=== PATIENT | male | born 1955 | race Caucasian/White ===

== ENCOUNTER 2017-02-16 10:46 | Inpatient (IN) | payer OTHER ==
[2017-02-16 10:57] VITALS: BMI 29.5
[2017-02-16] MEDS ORDERED: Sodium Chloride 0.9% 1,000 ML IV SCH (11:30)
--- NOTE | 2017-02-16 11:52 | ED PDOC ---
HPI: General Adult Time Seen by Provider: 02/16/17 11:07 Chief Complaint (Nursing): Headache Chief Complaint (Provider): generalized weakness History Per: Patient History/Exam Limitations: no limitations Onset/Duration Of Symptoms: Days (10) Have you had recent travel within the past 21 days to any of the following countries: [place], [place], [place] or [place]?: No Other Location:: [place] Current Symptoms Are (Timing): Still Present Severity: Mild Recently: Treated By A Physician (treated in [place]) Additional History Per: Patient Additional Complaint(s): 62 y/o male c/o generalized weakness for 10 days. Patient was evaluated in [place] recently and was given Bactrim. Patient recently arrived in the [place] 3 hours [employer] from [place]. Patient reports decreased appetite and subjective fever at nights. Denies cough, nose congestion, sore throat. No nausea, vomiting, diarrhea, abdominal pain. No chest pain, Shortness of breath, dysuria. Past Medical History Reviewed: Historical Data, Nursing Documentation, Vital Signs Vital Signs: Last Vital Signs Temp 98.0 F 02/16/17 11:06 Pulse 82 02/16/17 11:06 Resp 18 02/16/17 11:06 BP 140/83 02/16/17 11:06 Pulse Ox 98 02/16/17 14:24 - Medical History PMH: HTN - Family History Family History: States: Unknown Family Hx - Social History Current smoker - smoking cessation education provided: No Alcohol: None Drugs: Denies - Allergies Allergies/Adverse Reactions: Allergies Allergy/AdvReac Type Severity Reaction Status Date / Time No Known Allergies Allergy Verified 02/16/17 11:05 Review of Systems ROS Statement: Except As Marked, All Systems Reviewed And Found Negative Constitutional: Positive for: Fever (Subjective, at night), Weakness ENT: Negative for: Nose Congestion, Throat Pain Cardiovascular: Negative for: Chest Pain Respiratory: Negative for: Cough, Shortness of Breath Gastrointestinal: Negative for: Nausea, Vomiting, Abdominal Pain, Diarrhea Genitourinary Male: Negative for: Dysuria Neurological: Positive for: Weakness Physical Exam - Reviewed Nursing Documentation Reviewed: Yes Vital Signs Reviewed: Yes - Physical Exam Appears: Positive for: Well, Non-toxic, No Acute Distress Head Exam: Positive for: ATRAUMATIC, NORMAL INSPECTION, NORMOCEPHALIC Skin: Positive for: Normal Color, Warm, DRY Eye Exam: Positive for: EOMI, Normal appearance, PERRL ENT: Positive for: Normal ENT Inspection Neck: Positive for: Normal, Painless ROM, Supple Cardiovascular/Chest: Positive for: Regular Rate, Rhythm Respiratory: Positive for: Normal Breath Sounds. Negative for: Rales, Rhonchi, Wheezing Gastrointestinal/Abdominal: Positive for: Soft. Negative for: Tenderness Back: Positive for: Normal Inspection. Negative for: L CVA Tenderness, R CVA Tenderness Extremity: Positive for: Normal ROM (x4). Negative for: Tenderness Neurologic/Psych: Positive for: Alert, grocery store associate II-XII, Oriented (x3) - Laboratory Results Result Diagrams: 02/16/17 11:55 02/16/17 11:55 Interpretation Of Abn Labs: no acute - ECG ECG: Positive for: Interpreted By Me, Viewed By Me ECG Rhythm: Positive for: Normal QRS, Normal ST Segment, Sinus Rhythm O2 Sat by Pulse Oximetry: 98 (RA) Pulse Ox Interpretation: Normal - Radiology X-Ray: Read By Radiologist X-Ray Interpretation: No Acute Disease - CT Scan/US ct Other Rad Studies (CT/US): Read By Radiologist Other Rad Interpretation: no acute - Progress ED Course And Treament: 1421: Stable. AAOx3. Weakness still present. Spoke with hospitalist. Will admit obs tele. Needs further eval. Medical Decision Making Medical Decision Making: Initial Impression: * Generalized weakness for 10 days. Initial Plan: * Blood work up * CT Head w/o * EKG * Chest x-ray * IV fluids * UA Time: 11:20 11:20. Patient recently came from [place] 3 hours priors. Was recently evaluated and was given Bactrim. Time: 1207 --CXR FINDINGS: LUNGS: No active pulmonary disease. PLEURA: No significant pleural effusion identified, no pneumothorax apparent. CARDIOVASCULAR: Cardiomegaly. No evidence of acute, significant cardiovascular disease. OSSEOUS STRUCTURES: No significant abnormalities. VISUALIZED UPPER ABDOMEN: Normal. OTHER FINDINGS: None. IMPRESSION: No active disease. Time: 1300 --CT Head FINDINGS: HEMORRHAGE: No intracranial hemorrhage. BRAIN: No mass effect or edema. Cortical atrophy, periventricular small vessel disease VENTRICLES: Unremarkable. No hydrocephalus. CALVARIUM: Unremarkable. PARANASAL SINUSES: Unremarkable as visualized. No significant inflammatory changes. MASTOID AIR CELLS: Unremarkable as visualized. No inflammatory changes. OTHER FINDINGS: None. IMPRESSION: No acute intracranial abnormalities. No significant findings to account for the clinical presentation. Scribe Attestation Documented by Maddy felix acting as a scribe for Samson Sainz MD. Provider Attestation: All medical record entries made by the Scribe were at my direction and personally dictated by me. I have reviewed the chart and agree that the record accurately reflects my personal performance of the history, physical exam, medical decision making, and the department course for this patient. I have also personally directed, reviewed, and agree with the discharge instructions and disposition. Disposition - Clinical Impression Clinical Impression: Weakness - Patient ED Disposition Is Patient to be Admitted: Yes Counseled Patient/Family Regarding: Studies Performed, Diagnosis - Disposition Disposition Time: 14:22 Condition: FAIR - Pt Status Changed To: Hospital Disposition Of: Observation - POA Present On Arrival: None
--- NOTE | 2017-02-16 12:09 | RAD ---
HISTORY: Sepsis Patient COMPARISON: No prior. FINDINGS: LUNGS: No active pulmonary disease. PLEURA: No significant pleural effusion identified, no pneumothorax apparent. CARDIOVASCULAR: Cardiomegaly. No evidence of acute, significant cardiovascular disease. OSSEOUS STRUCTURES: No significant abnormalities. VISUALIZED UPPER ABDOMEN: Normal. OTHER FINDINGS: None. IMPRESSION: No active disease. No preliminary report provided by emergency department personnel.
[2017-02-16 12:52] LABS: BASO % 0.3 % (0.0-2.0); EOS % 0.6 % (0.0-4.0); HEMATOCRIT 42.7 % (35.0-51.0); LYMPH % 37.2 % (20.0-40.0); MEAN CELL VOLUME 86.3 fl (80.0-94.0); MEAN CORPUSCULAR HEMOGLOBIN 28.5 pg (27.0-31.0); MEAN PLATELET VOLUME 7.2 fl (7.2-11.7); MONO # 0.9 K/uL (0.0-0.8); MONO % 11.8 % (0.0-10.0); NEUT % 50.1 % (50.0-75.0); NRBC % 0.1 % (0.0-0.0); RED CELL DISTRIBUTION WIDTH 15.7 % (11.5-14.5)
--- NOTE | 2017-02-16 13:02 | CT ---
PROCEDURE: CT HEAD WITHOUT CONTRAST. HISTORY: weak COMPARISON: None available. TECHNIQUE: Axial computed tomography images were obtained through the head/brain without intravenous contrast. Radiation dose: Total exam DLP = 775.12 mGy-cm. This CT exam was performed using one or more of the following dose reduction techniques: Automated exposure control, adjustment of the mA and/or kV according to patient size, and/or use of iterative reconstruction technique. FINDINGS: HEMORRHAGE: No intracranial hemorrhage. BRAIN: No mass effect or edema. Cortical atrophy, periventricular small vessel disease VENTRICLES: Unremarkable. No hydrocephalus. CALVARIUM: Unremarkable. PARANASAL SINUSES: Unremarkable as visualized. No significant inflammatory changes. MASTOID AIR CELLS: Unremarkable as visualized. No inflammatory changes. OTHER FINDINGS: None. IMPRESSION: No acute intracranial abnormalities. No significant findings to account for the clinical presentation.
[2017-02-16 13:08] LABS: ALB/GLOB RATIO 0.9 (1.0-2.1); ALKALINE PHOSPHATASE 140 U/L (38-126); ALT/SGPT 75 U/L (21-72); AST/SGOT 92 U/L (17-59); BILIRUBIN,TOTAL 0.7 mg/dl (0.2-1.3); BLOOD UREA NITROGEN 18 mg/dl (9-20); CALCIUM 9.3 mg/dL (8.4-10.2); CARBON DIOXIDE 27 mmol/L (22-30); CHLORIDE 100 mmol/L (98-107); GFR AFRICAN-AMERICAN > 60; GLUCOSE,RANDOM 89 mg/dL (75-110); MAGNESIUM 2.1 MG/DL (1.6-2.3); PHOSPHOROUS 2.3 mg/dl (2.5-4.5); SODIUM 137 mmol/l (132-148)
[2017-02-16 13:13] LABS: PARTIAL THROMBOPLASTIN TIME 29.7 Seconds (25.6-37.1)
[2017-02-16 13:34] LABS: THYROID STIMULATING HORMONE 0.81 mIU/ML (0.46-4.68)
[2017-02-16 13:53] LABS: RBC URINE < 1 /hpf (0-3); URINE BILIRUBIN NEGATIVE (NEGATIVE); URINE BLOOD SMALL (NEGATIVE); URINE COLOR YELLOW (YELLOW); URINE GLUCOSE (UA) NEG (Normal); URINE KETONE NEGATIVE (NEGATIVE); URINE LEUKOCYTE ESTERASE NEG Leu/uL (Negative); URINE PROTEIN 30 mg/dL (NEGATIVE); URINE UROBILINOGEN 0.2-1.0 mg/dL (0.2-1.0); WBC URINE 1 /hpf (0-5)
[2017-02-16 14:12] LABS: VENOUS BLOOD GAS BASE EXCESS 4.8 mmol/L (0.0-2.0); VENOUS BLOOD GAS PCO2 41 mmHg (40-60); VENOUS BLOOD PH 7.46 (7.32-7.43)
[2017-02-16] MEDS: Sodium Chloride 0.9% 1,000 ML IV SCH (14:54)
--- NOTE | 2017-02-16 18:30 | CT ---
PROCEDURE: CT Chest, Abdomen and Pelvis without intravenous contrast HISTORY: fever of unknown origin, r/o lymphoma COMPARISON: None. TECHNIQUE: Unenhanced study. Neither oral nor intravenous contrast administered. Sensitivity and specificity for acute inflammatory processes limited by the absence of oral and intravenous contrast. Radiation dose: Total exam DLP = 1218.82 mGy-cm. This CT exam was performed using one or more of the following dose reduction techniques: Automated exposure control, adjustment of the mA and/or kV according to patient size, and/or use of iterative reconstruction technique. FINDINGS: CT CHEST WITHOUT CONTRAST: LUNGS: Atelectasis, scarring at the lung bases, mild. No suspicious pulmonary nodules, masses, infiltrates identified. MEDIASTINUM: Dilated main pulmonary artery consistent with pulmonary arterial hypertension. No radiographic findings to suggest acute or significant cardiovascular disease. LYMPH NODES: Unremarkable. PLEURA: Unremarkable. No pneumothorax. No pleural fluid. BONES: Unremarkable. Grade 1 anterolisthesis L4-L5. Pars defects identified at this level. OTHER FINDINGS: None. CT ABDOMEN AND PELVIS: LIVER: Unremarkable. No gross lesion or ductal dilatation. GALLBLADDER AND BILE DUCTS: Unremarkable. PANCREAS: Unremarkable. No gross lesion or ductal dilatation. SPLEEN: Unremarkable. ADRENALS: Unremarkable. No mass. KIDNEYS AND URETERS: Unremarkable. No hydronephrosis. No solid mass. VASCULATURE: Unremarkable. No aortic aneurysm. BOWEL: Constipation without fecal impaction or obstruction. APPENDIX: No abnormalities to suggest acute appendicitis. No right lower quadrant inflammatory processes identified. PERITONEUM: Unremarkable. No free fluid. No free air. LYMPH NODES: Unremarkable. No enlarged lymph nodes. BLADDER: The bladder wall is thickened in part related to underfilling. No focal bladder abnormalities. Urachal remnant identified identified without evidence of urachal cyst, mass or other pathologic process. REPRODUCTIVE: Unremarkable. BONES: No acute fracture. OTHER FINDINGS: None. IMPRESSION: No significant or acute findings to account for/ related to the clinical presentation. Additional benign and/or incidental findings described above. Limitations of the current examination: Absence of oral and to a lesser extent intravenous contrast.
--- NOTE | 2017-02-16 19:48 | CP.PCM.HP ---
History of Present Illness - History of Present Illness History of Present Illness: This is a 62-year-old male with a past medical history significant for hypertension, who presents to the emergency department for the evaluation of ongoing fever at night that is lasted for 10 days. This fever is accompanied by chills and decreased appetite. The patient has just arrived 3 hours previous to admission from [place]. Of note the patient did go to a hospital in [place] and was given cefepime and Bactrim. The patient denies any neck stiffness or headache. His main complaint at this time is generalized weakness and lethargy. He denies any sick contacts. In the emergency department, the patient was noted to have a fever of 101. The rest of his vitals are within normal limits. Laboratory workup shows a normal white count of 8.0, hemoglobin of 14.1, hematocrit of 42.7 , and elevated platelet count of 418. Chemistry panel shows a sodium 137, potassium 4.0, chloride 100, him and he accepts 27, BUN of 18, creatinine 1.1, phosphorus of 2.3, magnesium 2.1, elevated AST of 92, elevated ALT of 75, elevated alkaline phosphatase of 140. CT scan of the abdomen and pelvis was performed which shows no significant or acute findings to account for the clinical presentation. Of note, this scan was performed oral or IV contrast. Head CT was also performed which shows no acute intracranial abnormalities. Given the patient's symptoms, he is to be placed on telemetry observation for further workup by infectious disease due to fever of unknown origin.Patient denies chest pain, shortness of breath, fevers, chills, nausea, vomiting, diarrhea, headache. Rest of ROS as below. All of the patient's and/or family's questions were answered at the bedside. Present on Admission - Present on Admission Any Indicators Present on Admission: No Review of Systems - Constitutional Constitutional: Chills, Daytime Sleepiness, Fatigue, Fever, Malaise, Night Sweats. absent: Frequent Falls, Headache, Increased Appetite - EENT Eyes: absent: Discharge, Loss of Peripheral Vision Ears: absent: Decreased Hearing Nose/Mouth/Throat: absent: Nose Pain, Bleeding Gums, Change in Voice, Dysphagia , Halitosis - Cardiovascular Cardiovascular: absent: Chest Pain at Rest, Claudication, Diaphoresis, Dyspnea, Dyspnea on Exertion - Respiratory Respiratory: absent: Wheezing, Snoring, Stridor, Pain on Inspiration - Gastrointestinal Gastrointestinal: absent: Belching, Bloating, Change in Stool Character, Coffee Ground Emesis - Genitourinary Genitourinary: absent: Change in Urinary Stream, Difficulty Urinating, Hematuria , Urinary Incontinence, Urinary Hesitance - Musculoskeletal Musculoskeletal: absent: Joint Swelling, Limited Range of Motion, Loss of Height , Muscle Weakness, Myalgias - Integumentary Integumentary: absent: Bleeding Lesions, Change in Hair, Changing Lesions, Dry Skin, Sores, Swelling - Neurological Neurological: absent: Burning Sensations, Disequilibrium, Dizziness, Numbness, Lack of Coordination - Psychiatric Psychiatric: absent: Behavioral Changes, Confusion, Depression, Homicidal Ideation, Hopelessness - Endocrine Endocrine: Fatigue. absent: Change in Body Appearance, Deepening of Voice, Excessive Sweating Past Patient History - Infectious Disease Hx of Infectious Diseases: None - Past Social History Smoking Status: Never Smoked - CARDIAC Hx Cardiac Disorders: Yes - MUSCULOSKELETAL/RHEUMATOLOGICAL Hx Falls: No - PSYCHIATRIC Hx Substance Use: No Meds Allergies/Adverse Reactions: Allergies Allergy/AdvReac Type Severity Reaction Status Date / Time No Known Allergies Allergy Verified 02/16/17 11:05 Physical Exam - Constitutional Additional comments: Lethargic - Additional Findings Additional findings: EXAM: Vitals stable and reviewed GEN: WDWN, alert, cooperative HEENT: NCAT, PERRL, EOMI Neck: supple, no lymphadenopathy CARDIO: +S1S2, RRR, NO M/R/G LUNG: CTAB, NO W/R/R ABD: soft, NT, ND, no masses, no HSM EXT: no edema, pedal pulses Neuro: AAOx3, Strength equal, bilateral UE/LE Psych: normal mood, normal affect Results - Vital Signs Recent Vital Signs: Last Vital Signs Temp 99.5 F 02/16/17 19:34 Pulse 71 02/16/17 19:34 Resp 20 02/16/17 19:34 BP 128/71 02/16/17 19:34 Pulse Ox 95 02/16/17 19:34 - Labs Result Diagrams: 02/16/17 11:55 02/16/17 11:55 Labs: Laboratory Results - last 24 hr 02/16/17 02/16/17 14:45 15:00 HIV-1 Ab Rapid Screen Non reactive Influenza Typ A,B (EIA) Negative for flu a/b Assessment & Plan - Assessment and Plan (Free Text) Plan: ASSESSMENT - Fever of unknown origin, differential is broad, includes HIV, malaria, lymphoma or other malignancy, r/o [place] virus - History of hypertension PLAN - Admit to tele/obs - ID consultation with Dr. Devlin appreciated - Continue IV fluids - Tylenol PRN for fever - Monitor other vital signs closely for signs of sepsis - F/U cultures - Repeat CBC, BMp - Tylenol PRN for fever - F/u malarial smear, quantiferon, [place] AB, procalictonin - DVT prophylaxis with heparin
[2017-02-16 23:11] LABS: INTRACELLULAR PARASITE NEGATIVE (NEGATIVE)
[2017-02-17 07:26] LABS: BASO % 0.6 % (0.0-2.0); EOS % 0.7 % (0.0-4.0); HEMATOCRIT 40.8 % (35.0-51.0); LYMPH # 2.8 K/uL (1.0-4.3); LYMPH % 39.8 % (20.0-40.0); MEAN CELL VOLUME 86.6 fl (80.0-94.0); MEAN CORPUSCULAR HEMOGLOBIN 28.5 pg (27.0-31.0); MEAN CORPUSCULAR HGB CONC 32.9 g/dL (33.0-37.0); MEAN PLATELET VOLUME 6.9 fl (7.2-11.7); MONO # 0.7 K/uL (0.0-0.8); NEUT # 3.4 K/uL (1.8-7.0); NEUT % 48.9 % (50.0-75.0); NRBC % 0.1 % (0.0-0.0); RED CELL DISTRIBUTION WIDTH 15.9 % (11.5-14.5)
[2017-02-17 07:32] LABS: BLOOD UREA NITROGEN 11 mg/dl (9-20); CARBON DIOXIDE 24 mmol/L (22-30); CHLORIDE 107 mmol/L (98-107); GFR AFRICAN-AMERICAN > 60; GLUCOSE,RANDOM 100 mg/dL (75-110); POTASSIUM 4.5 MMOL/L (3.6-5.0); SODIUM 139 mmol/l (132-148)
--- NOTE | 2017-02-17 08:43 | CARD ---
APPROVED REPORT EKG Measurement Heart [id number] <Conclusion> Normal sinus rhythm Possible Left atrial enlargement Borderline ECG
--- NOTE | 2017-02-17 11:10 | CP.PCM.CON ---
History of Present Illness - History of Present Illness History of Present Illness: Infectious Disease consult note- asked to see this patient at the request of Hospitalist HPI- Patient is a 62 year old male with PMH of HTN who was admitted fro fever and weakness complaints. Pt. explains that he is orginally from [place] his and went to visit some relatives in [place] ( alone) and while there he started experiencing fever and los of appetite and weakness that started 10 days ago while in [place], He states he went to hospital there and had extensive work up and everything was negative to his knowledge but he states they did give him 4 Iv infusions of cefepime and One IM injection of an antibiotic . He is not sure why he was given this antibiotic. He denies any sick contacts while there, denies any animal exposure, denies any mosquito bite. denies ever having anything like this before. He also states he feels that his jaw is slightly tense but not tender. denies any recent dental work. He also c/o slight tenderness in his lower back and his neck but has FROM of his neck. He denies any sob , denies any cough, denies any hemoptysis, denies any nausea or vomiting, does have decrease appetite, denies any diarrhea. denies any dysurea. He sattes he feels slightly better compared to yesterday but still feels weakness and no appetite. Review of Systems - Review of Systems Review of Systems: ROS- + febrile, + weakness, c/o some neck pain but no rigidity,c/o slight tense sensation to right jaw, denies any dental problems, denies any cough, denies any sob, denies any chest pain, denies any n/v, denies any abd. pain, denies any diarrhea denies any sick contacts denies any animal exposure denies any mosquito bite. denies any exposure to TB + loss of appetite Past Patient History - Infectious Disease Hx of Infectious Diseases: None - Past Social History Smoking Status: Never Smoked Alcohol: None Drugs: Denies Home Situation {Lives}: With Family - CARDIAC Hx Hypertension: Yes - PULMONARY Hx Respiratory Disorders: No - NEUROLOGICAL Hx Neurological Disorder: No - HEENT Hx HEENT Problems: No - RENAL Hx Chronic Kidney Disease: No - HEMATOLOGICAL/ONCOLOGICAL Hx Blood Disorders: No - MUSCULOSKELETAL/RHEUMATOLOGICAL Hx Musculoskeletal Disorders: No Hx Falls: No - PSYCHIATRIC Hx Substance Use: No Meds Allergies/Adverse Reactions: Allergies Allergy/AdvReac Type Severity Reaction Status Date / Time No Known Allergies Allergy Verified 02/16/17 11:05 - Medications Medications: Current Medications Acetaminophen (Tylenol 325mg Tab) 650 mg PO Q6 PRN PRN Reason: Fever >100.4 F Last Admin: 02/17/17 00:17 Dose: 650 mg Heparin Sodium (Porcine) (Heparin) 5,000 units SC Q12 YOSELIN PRN Reason: Protocol Last Admin: 02/17/17 08:32 Dose: 5,000 units Sodium Chloride (Sodium Chloride 0.9%) 1,000 mls @ 100 mls/hr IV .[facility]10H [facility] Last Admin: 02/16/17 14:54 Dose: 100 mls/hr Physical Exam - Constitutional Appears: No Acute Distress - Head Exam Head Exam: ATRAUMATIC, NORMAL INSPECTION - Eye Exam Eye Exam: EOMI, PERRL - ENT Exam ENT Exam: Normal Oropharynx - Neck Exam Neck exam: Positive for: Full Rom Additional comments: supple states slight pain in posterior neck with flexion - Respiratory Exam Respiratory Exam: Clear to Auscultation Bilateral, NORMAL BREATHING PATTERN - Cardiovascular Exam Cardiovascular Exam: RRR, +S1, +S2 Additional comments: no murmurs - GI/Abdominal Exam GI & Abdominal Exam: Normal Bowel Sounds, Soft Additional comments: NT, ND No guarding, no rebound No CVA tenderness b/l - Extremities Exam Extremities exam: Positive for: normal inspection - Neurological Exam Neurological exam: Alert, CN II-XII Intact, Oriented x3 - Skin Additional comments: No Rash Results - Vital Signs Recent Vital Signs: Last Vital Signs Temp 99.6 F 02/17/17 08:16 Pulse 71 02/17/17 09:00 Resp 18 02/17/17 08:16 BP 147/89 02/17/17 08:16 Pulse Ox 96 02/17/17 08:16 - Labs Result Diagrams: 02/17/17 04:00 02/17/17 05:35 Labs: Laboratory Results - last 24 hr 02/16/17 02/16/17 02/16/17 14:45 14:45 15:00 WBC RBC Hgb Hct MCV MCH MCHC RDW Plt Count MPV Neut % (Auto) Lymph % (Auto) Stone % (Auto) Eos % (Auto) Baso % (Auto) Neut # Lymph # Stone # Eos # Baso # Sodium Potassium Chloride Carbon Dioxide Anion Gap BUN Creatinine Est GFR ( Amer) Est GFR (Non-Af Amer) Random Glucose Calcium Lactate Dehydrogenase HIV-1 Ab Rapid Screen Non reactive HIV 1&2 Ag/Ab, 4th Gen Influenza Typ A,B (EIA) Negative for flu a/b Blood Parasites Smear Negative 02/16/17 02/16/17 02/17/17 18:43 19:40 04:00 WBC 7.0 RBC 4.71 Hgb 13.4 Hct 40.8 MCV 86.6 MCH 28.5 MCHC 32.9 L RDW 15.9 H Plt Count 420 H MPV 6.9 L Neut % (Auto) 48.9 L Lymph % (Auto) 39.8 Stone % (Auto) 10.0 Eos % (Auto) 0.7 Baso % (Auto) 0.6 Neut # 3.4 Lymph # 2.8 Stone # 0.7 Eos # 0.0 Baso # 0.0 Sodium Potassium Chloride Carbon Dioxide Anion Gap BUN Creatinine Est GFR ( Amer) Est GFR (Non-Af Amer) Random Glucose Calcium Lactate Dehydrogenase 676 H HIV-1 Ab Rapid Screen HIV 1&2 Ag/Ab, 4th Gen Nonreactive Influenza Typ A,B (EIA) Blood Parasites Smear 02/17/17 05:35 WBC RBC Hgb Hct MCV MCH MCHC RDW Plt Count MPV Neut % (Auto) Lymph % (Auto) Stone % (Auto) Eos % (Auto) Baso % (Auto) Neut # Lymph # Stone # Eos # Baso # Sodium 139 Potassium 4.5 Chloride 107 Carbon Dioxide 24 Anion Gap 13 BUN 11 Creatinine 1.1 Est GFR ( Amer) > 60 Est GFR (Non-Af Amer) > 60 Random Glucose 100 Calcium 9.0 Lactate Dehydrogenase HIV-1 Ab Rapid Screen HIV 1&2 Ag/Ab, 4th Gen Influenza Typ A,B (EIA) Blood Parasites Smear Laboratory Results - last 72 hr 02/16/17 02/16/17 02/16/17 11:21 11:37 11:55 WBC 8.0 RBC 4.95 Hgb 14.1 Hct 42.7 MCV 86.3 MCH 28.5 MCHC 33.0 RDW 15.7 H Plt Count 418 H MPV 7.2 Neut % (Auto) 50.1 Lymph % (Auto) 37.2 Stone % (Auto) 11.8 H Eos % (Auto) 0.6 Baso % (Auto) 0.3 Neut # 4.0 Lymph # 3.0 Stone # 0.9 H Eos # 0.0 Baso # 0.0 PT INR APTT pO2 28 L VBG pH 7.46 H VBG pCO2 41 VBG HCO3 27.2 VBG Total CO2 30.5 H VBG O2 Sat (Calc) 55.4 VBG Base Excess 4.8 H Sodium 170.0 H* Chloride 118.0 H Glucose 83 Lactate 1.7 FiO2 21.0 Blood Gas Comments Vbg Crit Value Called To Mitch brunson r.n. Crit Value Called By Isaura Crit Value Read Back Y Blood Gas Notified Time 1156 Potassium Carbon Dioxide Anion Gap BUN Creatinine Est GFR ( Amer) Est GFR (Non-Af Amer) POC Glucose (mg/dL) 102 Random Glucose Calcium Phosphorus Magnesium Total Bilirubin AST ALT Alkaline Phosphatase Lactate Dehydrogenase Troponin I Total Protein Albumin Globulin Albumin/Globulin Ratio Procalcitonin TSH 3rd Generation Urine Color Urine Clarity Urine pH Ur Specific Devine Urine Protein Urine Glucose (UA) Urine Ketones Urine Blood Urine Nitrate Urine Bilirubin Urine Urobilinogen Ur Leukocyte Esterase Urine RBC (Auto) Urine Microscopic WBC Ur Squamous Epith Cells Hepatitis A IgM Ab Hep Bs Antigen Hep B Core IgM Ab Hepatitis C Antibody HIV-1 Ab Rapid Screen HIV 1&2 Ag/Ab, 4th Gen Influenza Typ A,B (EIA) Blood Parasites Smear 02/16/17 02/16/17 02/16/17 11:55 11:55 13:30 WBC RBC Hgb Hct MCV MCH MCHC RDW Plt Count MPV Neut % (Auto) Lymph % (Auto) Stone % (Auto) Eos % (Auto) Baso % (Auto) Neut # Lymph # Stone # Eos # Baso # PT 11.9 INR 1.2 APTT 29.7 pO2 VBG pH VBG pCO2 VBG HCO3 VBG Total CO2 VBG O2 Sat (Calc) VBG Base Excess Sodium 137 Chloride 100 Glucose Lactate FiO2 Blood Gas Comments Crit Value Called To Crit Value Called By Crit Value Read Back Blood Gas Notified Time Potassium 4.0 Carbon Dioxide 27 Anion Gap 15 BUN 18 Creatinine 1.1 Est GFR ( Amer) > 60 Est GFR (Non-Af Amer) > 60 POC Glucose (mg/dL) Random Glucose 89 Calcium 9.3 Phosphorus 2.3 L Magnesium 2.1 Total Bilirubin 0.7 AST 92 H ALT 75 H Alkaline Phosphatase 140 H Lactate Dehydrogenase Troponin I < 0.0120 Total Protein 8.0 Albumin 3.7 Globulin 4.3 H Albumin/Globulin Ratio 0.9 L Procalcitonin TSH 3rd Generation 0.81 Urine Color Yellow Urine Clarity Clear Urine pH 7.0 Ur Specific Devine 1.012 Urine Protein 30 Urine Glucose (UA) Neg Urine Ketones Negative Urine Blood Small Urine Nitrate Negative Urine Bilirubin Negative Urine Urobilinogen 0.2-1.0 Ur Leukocyte Esterase Neg Urine RBC (Auto) < 1 Urine Microscopic WBC 1 Ur Squamous Epith Cells < 1 Hepatitis A IgM Ab Hep Bs Antigen Hep B Core IgM Ab Hepatitis C Antibody HIV-1 Ab Rapid Screen HIV 1&2 Ag/Ab, 4th Gen Influenza Typ A,B (EIA) Blood Parasites Smear 02/16/17 02/16/17 02/16/17 14:45 14:45 15:00 WBC RBC Hgb Hct MCV MCH MCHC RDW Plt Count MPV Neut % (Auto) Lymph % (Auto) Stone % (Auto) Eos % (Auto) Baso % (Auto) Neut # Lymph # Stone # Eos # Baso # PT INR APTT pO2 VBG pH VBG pCO2 VBG HCO3 VBG Total CO2 VBG O2 Sat (Calc) VBG Base Excess Sodium Chloride Glucose Lactate FiO2 Blood Gas Comments Crit Value Called To Crit Value Called By Crit Value Read Back Blood Gas Notified Time Potassium Carbon Dioxide Anion Gap BUN Creatinine Est GFR ( Amer) Est GFR (Non-Af Amer) POC Glucose (mg/dL) Random Glucose Calcium Phosphorus Magnesium Total Bilirubin AST ALT Alkaline Phosphatase Lactate Dehydrogenase Troponin I Total Protein Albumin Globulin Albumin/Globulin Ratio Procalcitonin TSH 3rd Generation Urine Color Urine Clarity Urine pH Ur Specific Devine Urine Protein Urine Glucose (UA) Urine Ketones Urine Blood Urine Nitrate Urine Bilirubin Urine Urobilinogen Ur Leukocyte Esterase Urine RBC (Auto) Urine Microscopic WBC Ur Squamous Epith Cells Hepatitis A IgM Ab Hep Bs Antigen Hep B Core IgM Ab Hepatitis C Antibody HIV-1 Ab Rapid Screen Non reactive HIV 1&2 Ag/Ab, 4th Gen Influenza Typ A,B (EIA) Negative for flu a/b Blood Parasites Smear Negative 02/16/17 02/16/17 02/16/17 18:43 18:43 19:40 WBC RBC Hgb Hct MCV MCH MCHC RDW Plt Count MPV Neut % (Auto) Lymph % (Auto) Stone % (Auto) Eos % (Auto) Baso % (Auto) Neut # Lymph # Stone # Eos # Baso # PT INR APTT pO2 VBG pH VBG pCO2 VBG HCO3 VBG Total CO2 VBG O2 Sat (Calc) VBG Base Excess Sodium Chloride Glucose Lactate FiO2 Blood Gas Comments Crit Value Called To Crit Value Called By Crit Value Read Back Blood Gas Notified Time Potassium Carbon Dioxide Anion Gap BUN Creatinine Est GFR ( Amer) Est GFR (Non-Af Amer) POC Glucose (mg/dL) Random Glucose Calcium Phosphorus Magnesium Total Bilirubin AST ALT Alkaline Phosphatase Lactate Dehydrogenase 676 H Troponin I Total Protein Albumin Globulin Albumin/Globulin Ratio Procalcitonin 0.33 TSH 3rd Generation Urine Color Urine Clarity Urine pH Ur Specific Devine Urine Protein Urine Glucose (UA) Urine Ketones Urine Blood Urine Nitrate Urine Bilirubin Urine Urobilinogen Ur Leukocyte Esterase Urine RBC (Auto) Urine Microscopic WBC Ur Squamous Epith Cells Hepatitis A IgM Ab Hep Bs Antigen Hep B Core IgM Ab Hepatitis C Antibody HIV-1 Ab Rapid Screen HIV 1&2 Ag/Ab, 4th Gen Nonreactive Influenza Typ A,B (EIA) Blood Parasites Smear 02/16/17 02/17/17 02/17/17 20:40 04:00 05:35 WBC 7.0 RBC 4.71 Hgb 13.4 Hct 40.8 MCV 86.6 MCH 28.5 MCHC 32.9 L RDW 15.9 H Plt Count 420 H MPV 6.9 L Neut % (Auto) 48.9 L Lymph % (Auto) 39.8 Stone % (Auto) 10.0 Eos % (Auto) 0.7 Baso % (Auto) 0.6 Neut # 3.4 Lymph # 2.8 Stone # 0.7 Eos # 0.0 Baso # 0.0 PT INR APTT pO2 VBG pH VBG pCO2 VBG HCO3 VBG Total CO2 VBG O2 Sat (Calc) VBG Base Excess Sodium 139 Chloride 107 Glucose Lactate FiO2 Blood Gas Comments Crit Value Called To Crit Value Called By Crit Value Read Back Blood Gas Notified Time Potassium 4.5 Carbon Dioxide 24 Anion Gap 13 BUN 11 Creatinine 1.1 Est GFR ( Amer) > 60 Est GFR (Non-Af Amer) > 60 POC Glucose (mg/dL) Random Glucose 100 Calcium 9.0 Phosphorus Magnesium Total Bilirubin AST ALT Alkaline Phosphatase Lactate Dehydrogenase Troponin I Total Protein Albumin Globulin Albumin/Globulin Ratio Procalcitonin TSH 3rd Generation Urine Color Urine Clarity Urine pH Ur Specific Devine Urine Protein Urine Glucose (UA) Urine Ketones Urine Blood Urine Nitrate Urine Bilirubin Urine Urobilinogen Ur Leukocyte Esterase Urine RBC (Auto) Urine Microscopic WBC Ur Squamous Epith Cells Hepatitis A IgM Ab Negative Hep Bs Antigen Negative Hep B Core IgM Ab Negative Hepatitis C Antibody Negative HIV-1 Ab Rapid Screen HIV 1&2 Ag/Ab, 4th Gen Influenza Typ A,B (EIA) Blood Parasites Smear Microbiology 02/16/17 11:45 Blood Blood Culture - Preliminary NO GROWTH AFTER 24 HOURS 02/16/17 11:30 Blood Blood Culture - Preliminary NO GROWTH AFTER 24 HOURS 02/16/17 13:30 Urine Urine Culture - Final No Growth (<1,000 CFU/ML) Accession No. : [id number] Patient Name / ID : LANDY ELY / [id number] Exam Date : 02/16/2017 11:37:58 ( Approved ) Study Comment : Sex / Age : M / 62Y Creator : Wang Golden MD Dictator : Wang Golden MD Sustainability Project Manager : Manufacturing Cost Estimator : Wang Golden MD Approver2 : Report Date : 02/16/2017 12:07:13 My Comment : HISTORY: Sepsis Patient COMPARISON: No prior. FINDINGS: LUNGS: No active pulmonary disease. PLEURA: No significant pleural effusion identified, no pneumothorax apparent. CARDIOVASCULAR: Cardiomegaly. No evidence of acute, significant cardiovascular disease. OSSEOUS STRUCTURES: No significant abnormalities. VISUALIZED UPPER ABDOMEN: Normal. OTHER FINDINGS: None. IMPRESSION: No active disease. Accession No. : [id number] Patient Name / ID : LANDY ELY / [id number] Exam Date : 02/16/2017 17:05:43 ( Approved ) Study Comment : Sex / Age : M / 62Y Creator : Wang Golden MD Dictator : Wang Golden MD Sustainability Project Manager : Manufacturing Cost Estimator : Wang Golden MD Approver2 : Report Date : 02/16/2017 18:24:34 My Comment : PROCEDURE: CT Chest, Abdomen and Pelvis without intravenous contrast HISTORY: fever of unknown origin, r/o lymphoma COMPARISON: None. TECHNIQUE: Unenhanced study. Neither oral nor intravenous contrast administered. Sensitivity and specificity for acute inflammatory processes limited by the absence of oral and intravenous contrast. Radiation dose: Total exam DLP = 1218.82 mGy-cm. This CT exam was performed using one or more of the following dose reduction techniques: Automated exposure control, adjustment of the mA and/or kV according to patient size, and/or use of iterative reconstruction technique. FINDINGS: CT CHEST WITHOUT CONTRAST: LUNGS: Atelectasis, scarring at the lung bases, mild. No suspicious pulmonary nodules, masses, infiltrates identified. MEDIASTINUM: Dilated main pulmonary artery consistent with pulmonary arterial hypertension. No radiographic findings to suggest acute or significant cardiovascular disease. LYMPH NODES: Unremarkable. PLEURA: Unremarkable. No pneumothorax. No pleural fluid. BONES: Unremarkable. Grade 1 anterolisthesis L4-L5. Pars defects identified at this level. OTHER FINDINGS: None. CT ABDOMEN AND PELVIS: LIVER: Unremarkable. No gross lesion or ductal dilatation. GALLBLADDER AND BILE DUCTS: Unremarkable. PANCREAS: Unremarkable. No gross lesion or ductal dilatation. SPLEEN: Unremarkable. ADRENALS: Unremarkable. No mass. KIDNEYS AND URETERS: Unremarkable. No hydronephrosis. No solid mass. VASCULATURE: Unremarkable. No aortic aneurysm. BOWEL: Constipation without fecal impaction or obstruction. APPENDIX: No abnormalities to suggest acute appendicitis. No right lower quadrant inflammatory processes identified. PERITONEUM: Unremarkable. No free fluid. No free air. LYMPH NODES: Unremarkable. No enlarged lymph nodes. BLADDER: The bladder wall is thickened in part related to underfilling. No focal bladder abnormalities. Urachal remnant identified identified without evidence of urachal cyst, mass or other pathologic process. REPRODUCTIVE: Unremarkable. BONES: No acute fracture. OTHER FINDINGS: None. IMPRESSION: No significant or acute findings to account for/ related to the clinical presentation. Additional benign and/or incidental findings described above. Limitations of the current examination: Absence of oral and to a lesser extent intravenous contrast. Accession No. : [id number] Patient Name / ID : LANDY ELY / [id number] Exam Date : 02/16/2017 12:18:29 ( Approved ) Study Comment : Sex / Age : M / 62Y Creator : Wang Golden MD Dictator : Wang Golden MD Sustainability Project Manager : Manufacturing Cost Estimator : Wang Golden MD Approver2 : Report Date : 02/16/2017 13:00:07 My Comment : PROCEDURE: CT HEAD WITHOUT CONTRAST. HISTORY: weak COMPARISON: None available. TECHNIQUE: Axial computed tomography images were obtained through the head/brain without intravenous contrast. Radiation dose: Total exam DLP = 775.12 mGy-cm. This CT exam was performed using one or more of the following dose reduction techniques: Automated exposure control, adjustment of the mA and/or kV according to patient size, and/or use of iterative reconstruction technique. FINDINGS: HEMORRHAGE: No intracranial hemorrhage. BRAIN: No mass effect or edema. Cortical atrophy, periventricular small vessel disease VENTRICLES: Unremarkable. No hydrocephalus. CALVARIUM: Unremarkable. PARANASAL SINUSES: Unremarkable as visualized. No significant inflammatory changes. MASTOID AIR CELLS: Unremarkable as visualized. No inflammatory changes. OTHER FINDINGS: None. IMPRESSION: No acute intracranial abnormalities. No significant findings to account for the clinical presentation. Assessment & Plan (1) Weakness Status: Acute (2) Fever Status: Acute - Assessment and Plan (Free Text) Assessment: A/P- 62 year old male with no pmh other than HTN presents with FUO with recent travel to [place]. the etiology of the FUO is unclear at this time. so far all work up has been negative including HIV and hep c and hep B and Hep A. blood smear for parasite - negative blood cx- neg UA and urine cx- neg abd/pelvic/chest CT -negative as per report. influenza- neg plan- check for hep E serology. check dengue serology. check chikungunya serology. check west nile virus. check for yellow fever. check for salmonella typhi and paratyphi. would also advise to check CT of jaw and mastoid region in light of the jaw complaints and fever. check TTE r/o endocarditis. also would advise to check LP rule out viral meningitis. check CSF for gram stain and culture and HSV PCR and AFB and fungal. check quantiferon gold. Check for ricketsial disease. check ricketsial jaziel and ricketsia conorri and ricketsia typhi. check rapid RDt malaria test. check ehrlichia and anaplasmosis as well. place on airborne isolation pending further results. all above d/w patient and he verbalizes full understanding of all above. all above also d/w the hospitalist.
[2017-02-17] MEDS: Sodium Chloride 0.9% 1,000 ML IV SCH ×2 (11:30→21:53)
--- NOTE | 2017-02-17 13:20 | CP.PCM.PN ---
Subjective - Date & Time of Evaluation Date of Evaluation: 02/17/17 Time of Evaluation: 12:30 - Subjective Subjective: Pt remains febrile Denies headache no nuchal rigidity admits to feeling some jaw tightness a few days ago but better now complains of muscle aches [place] no open wound prior to getting sick denies CP no SOB no cough no abd pain no N/V Objective - Vital Signs/Intake and Output Vital Signs (last 24 hours): Temp Pulse Resp BP Pulse Ox 101.3 F H 75 18 150/88 94 L 02/17/17 12:27 02/17/17 12:27 02/17/17 12:27 02/17/17 12:27 02/17/17 12:27 - Medications Medications: Current Medications Acetaminophen (Tylenol 325mg Tab) 650 mg PO Q6 PRN PRN Reason: Fever >100.4 F Last Admin: 02/17/17 12:20 Dose: 650 mg Heparin Sodium (Porcine) (Heparin) 5,000 units SC Q12 YOSELIN PRN Reason: Protocol Last Admin: 02/17/17 08:32 Dose: 5,000 units Sodium Chloride (Sodium Chloride 0.9%) 1,000 mls @ 100 mls/hr IV .Q10H YOSELIN Last Admin: 02/17/17 11:30 Dose: 100 mls/hr - Labs Labs: 02/17/17 04:00 02/17/17 05:35 PT 11.9 Seconds (9.8-13.1) 02/16/17 11:55 INR 1.2 (0.9-1.2) 02/16/17 11:55 APTT 29.7 Seconds (25.6-37.1) 02/16/17 11:55 - Constitutional Appears: Non-toxic, No Acute Distress - Head Exam Head Exam: ATRAUMATIC, NORMAL INSPECTION, NORMOCEPHALIC - Eye Exam Eye Exam: EOMI, Normal appearance, PERRL Pupil Exam: NORMAL ACCOMODATION - ENT Exam ENT Exam: Mucous Membranes Moist, Normal External Ear Exam - Neck Exam Neck Exam: Full ROM. absent: Lymphadenopathy, Meningismus - Respiratory Exam Respiratory Exam: Rhonchi, NORMAL BREATHING PATTERN. absent: Wheezes, Respiratory Distress - Cardiovascular Exam Cardiovascular Exam: REGULAR RHYTHM, +S1, +S2 - GI/Abdominal Exam GI & Abdominal Exam: Soft, Normal Bowel Sounds. absent: Tenderness - Extremities Exam Extremities Exam: Full ROM, Normal Capillary Refill, Tenderness. absent: Calf Tenderness, Pedal Edema - Back Exam Back Exam: Full ROM, NORMAL INSPECTION. absent: CVA tenderness (L), CVA tenderness (R), paraspinal tenderness, vertebral tenderness - Neurological Exam Neurological Exam: Alert, Awake, CN II-XII Intact, Normal Gait, Oriented x3 Neuro motor strength exam: Left Upper Extremity: 5, Right Upper Extremity: 5, Left Lower Extremity: 5, Right Lower Extremity: 5 - Skin Skin Exam: Dry, Normal Color, Warm Assessment and Plan (1) FUO (fever of unknown origin) Status: Acute (2) HTN (hypertension) Status: Acute (3) DVT prophylaxis Status: Acute - Assessment and Plan (Free Text) Assessment: 62 y/o gent, with hx of HTN, Hyperlipidemia, just came from [place] yesterday, cam ein bec of 2 wks hx of Fever. he was admitted in a hospital in [place] and received antbiotics however fever persisted. He states that work up done ther did not reveal source of infection. (1) FUO (fever of unknown origin) Status: Acute Etiology to be determined CT of abd and Chest neg HIV negative Infuenza negative Hepatitis screen negative UA : negative malaria test : neg salmonella test to r/o typhoid RPR, Quantiferon blood c/s, urine c/s ECHO Isolate pt ID consulted - discussed case with Dr Abreu - rec LP to r/o Meningitis also rec Rickettsia, West Nile, Chikugunya, Dengue, Yellow Fever (2) HTN (hypertension) Status: Acute cont Losartan and Norvasc (3) DVT prophylaxis Status: Acute SCD for now hold anticoag as pt is having LP
[2017-02-17 22:01] LABS: INTRACELLULAR PARASITE NEGATIVE (NEGATIVE)
[2017-02-18 07:08] LABS: BASO % 0.6 % (0.0-2.0); EOS % 0.5 % (0.0-4.0); HEMATOCRIT 39.7 % (35.0-51.0); LYMPH # 2.9 K/uL (1.0-4.3); LYMPH % 42.7 % (20.0-40.0); MEAN CELL VOLUME 85.6 fl (80.0-94.0); MEAN CORPUSCULAR HEMOGLOBIN 28.8 pg (27.0-31.0); MEAN CORPUSCULAR HGB CONC 33.7 g/dL (33.0-37.0); MEAN PLATELET VOLUME 6.9 fl (7.2-11.7); MONO # 0.5 K/uL (0.0-0.8); MONO % 7.8 % (0.0-10.0); NEUT # 3.3 K/uL (1.8-7.0); NEUT % 48.4 % (50.0-75.0); NRBC % 0.2 % (0.0-0.0); RED CELL DISTRIBUTION WIDTH 15.6 % (11.5-14.5); WHITE BLOOD COUNT 6.7 K/uL (4.8-10.8)
[2017-02-18 07:31] LABS: ALB/GLOB RATIO 0.8 (1.0-2.1); ALKALINE PHOSPHATASE 119 U/L (38-126); ALT/SGPT 38 U/L (21-72); AST/SGOT 46 U/L (17-59); BILIRUBIN,TOTAL 0.8 mg/dl (0.2-1.3); BLOOD UREA NITROGEN 10 mg/dl (9-20); CALCIUM 8.4 mg/dL (8.4-10.2); CARBON DIOXIDE 20 mmol/L (22-30); CHLORIDE 108 mmol/L (98-107); GFR AFRICAN-AMERICAN > 60; GLUCOSE,RANDOM 97 mg/dL (75-110); POTASSIUM 4.5 MMOL/L (3.6-5.0); SODIUM 138 mmol/l (132-148); TOTAL PROTEIN 7.6 G/DL (6.3-8.2)
[2017-02-18] MEDS: Sodium Chloride 0.9% 1,000 ML IV SCH ×2 (09:09→17:35)
--- NOTE | 2017-02-18 14:38 | CP.PCM.PN ---
Subjective - Date & Time of Evaluation Date of Evaluation: 02/18/17 Time of Evaluation: 13:00 - Subjective Subjective: ID Note- Pt. seen and examined today. Pt. states he feels better today. Denies any TORRES, denies any neck pain and states the right jaw stiff sensation has resolved as well. denies any chills and states his appetite is improved today and he is eating some food. denies any nausea. Objective - Vital Signs/Intake and Output Vital Signs (last 24 hours): Temp Pulse Resp BP Pulse Ox 99 F 79 20 172/93 H 95 02/18/17 13:00 02/18/17 13:00 02/18/17 13:00 02/18/17 13:00 02/18/17 13:00 Intake and Output: 02/18/17 02/18/17 06:59 18:59 Intake Total 2200 Balance 2200 - Medications Medications: Current Medications Acetaminophen (Tylenol 325mg Tab) 650 mg PO Q6 PRN PRN Reason: Fever >100.4 F Last Admin: 02/17/17 12:20 Dose: 650 mg Amlodipine Besylate (Norvasc) 5 mg PO DAILY [facility] Last Admin: 02/18/17 09:08 Dose: 5 mg Atorvastatin Calcium (Lipitor) 10 mg PO HS [facility] Last Admin: 02/17/17 21:54 Dose: 10 mg Sodium Chloride (Sodium Chloride 0.9%) 1,000 mls @ 100 mls/hr IV .Q10H [facility] Last Admin: 02/18/17 09:09 Dose: 100 mls/hr Losartan Potassium (Cozaar) 50 mg PO DAILY [facility] Last Admin: 02/18/17 09:08 Dose: 50 mg - Labs Labs: - Constitutional Appears: No Acute Distress - Head Exam Head Exam: ATRAUMATIC - Eye Exam Eye Exam: EOMI, PERRL - ENT Exam ENT Exam: Normal Oropharynx - Neck Exam Neck Exam: Full ROM Additional comments: supple no meningismus - Respiratory Exam Respiratory Exam: Clear to Ausculation Bilateral, NORMAL BREATHING PATTERN - Cardiovascular Exam Cardiovascular Exam: RRR, +S1, +S2 - GI/Abdominal Exam GI & Abdominal Exam: Soft, Normal Bowel Sounds Additional comments: NT, ND - Extremities Exam Extremities Exam: Normal Inspection - Neurological Exam Neurological Exam: Alert, Awake, Oriented x3 - Additional Findings Additional findings: Laboratory Results - last 72 hr 02/16/17 02/16/17 02/16/17 11:21 11:37 11:55 WBC 8.0 RBC 4.95 Hgb 14.1 Hct 42.7 MCV 86.3 MCH 28.5 MCHC 33.0 RDW 15.7 H Plt Count 418 H MPV 7.2 Neut % (Auto) 50.1 Lymph % (Auto) 37.2 [place] % (Auto) 11.8 H Eos % (Auto) 0.6 Baso % (Auto) 0.3 Neut # 4.0 Lymph # 3.0 [place] # 0.9 H Eos # 0.0 Baso # 0.0 PT INR APTT pO2 28 L VBG pH 7.46 H VBG pCO2 41 VBG HCO3 27.2 VBG Total CO2 30.5 H VBG O2 Sat (Calc) 55.4 VBG Base Excess 4.8 H Sodium 170.0 H* Chloride 118.0 H Glucose 83 Lactate 1.7 FiO2 21.0 Blood Gas Comments Vbg Crit Value Called To Mitch brunson r.n. Crit Value Called By Isaura Crockett Value Read Back Y Blood Gas Notified Time 1156 Potassium Carbon Dioxide Anion Gap BUN Creatinine Est GFR ( Amer) Est GFR (Non-Af Amer) POC Glucose (mg/dL) 102 Random Glucose Calcium Phosphorus Magnesium Total Bilirubin AST ALT Alkaline Phosphatase Lactate Dehydrogenase Troponin I Total Protein Albumin Globulin Albumin/Globulin Ratio Procalcitonin TSH 3rd Generation Urine Color Urine Clarity Urine pH Ur Specific [place] Urine Protein Urine Glucose (UA) Urine Ketones Urine Blood Urine Nitrate Urine Bilirubin Urine Urobilinogen Ur Leukocyte Esterase Urine RBC (Auto) Urine Microscopic WBC Ur Squamous Epith Cells Hepatitis A IgM Ab Hep Bs Antigen Hep B Core IgM Ab Hepatitis C Antibody HIV-1 Ab Rapid Screen HIV-1 RNA Qnt (RT-PCR) HIV 1&2 Ag/Ab, 4th Gen Influenza Typ A,B (EIA) Blood Parasites Smear 02/16/17 02/16/17 02/16/17 11:55 11:55 13:30 WBC RBC Hgb Hct MCV MCH MCHC RDW Plt Count MPV Neut % (Auto) Lymph % (Auto) [place] % (Auto) Eos % (Auto) Baso % (Auto) Neut # Lymph # [place] # Eos # Baso # PT 11.9 INR 1.2 APTT 29.7 pO2 VBG pH VBG pCO2 VBG HCO3 VBG Total CO2 VBG O2 Sat (Calc) VBG Base Excess Sodium 137 Chloride 100 Glucose Lactate FiO2 Blood Gas Comments Crit Value Called To Crit Value Called By Crit Value Read Back Blood Gas Notified Time Potassium 4.0 Carbon Dioxide 27 Anion Gap 15 BUN 18 Creatinine 1.1 Est GFR ( Amer) > 60 Est GFR (Non-Af Amer) > 60 POC Glucose (mg/dL) Random Glucose 89 Calcium 9.3 Phosphorus 2.3 L Magnesium 2.1 Total Bilirubin 0.7 AST 92 H ALT 75 H Alkaline Phosphatase 140 H Lactate Dehydrogenase Troponin I < 0.0120 Total Protein 8.0 Albumin 3.7 Globulin 4.3 H Albumin/Globulin Ratio 0.9 L Procalcitonin TSH 3rd Generation 0.81 Urine Color Yellow Urine Clarity Clear Urine pH 7.0 Ur Specific [place] 1.012 Urine Protein 30 Urine Glucose (UA) Neg Urine Ketones Negative Urine Blood Small Urine Nitrate Negative Urine Bilirubin Negative Urine Urobilinogen 0.2-1.0 Ur Leukocyte Esterase Neg Urine RBC (Auto) < 1 Urine Microscopic WBC 1 Ur Squamous Epith Cells < 1 Hepatitis A IgM Ab Hep Bs Antigen Hep B Core IgM Ab Hepatitis C Antibody HIV-1 Ab Rapid Screen HIV-1 RNA Qnt (RT-PCR) HIV 1&2 Ag/Ab, 4th Gen Influenza Typ A,B (EIA) Blood Parasites Smear 02/16/17 02/16/17 02/16/17 14:45 14:45 15:00 WBC RBC Hgb Hct MCV MCH MCHC RDW Plt Count MPV Neut % (Auto) Lymph % (Auto) [place] % (Auto) Eos % (Auto) Baso % (Auto) Neut # Lymph # [place] # Eos # Baso # PT INR APTT pO2 VBG pH VBG pCO2 VBG HCO3 VBG Total CO2 VBG O2 Sat (Calc) VBG Base Excess Sodium Chloride Glucose Lactate FiO2 Blood Gas Comments Crit Value Called To Crit Value Called By Crit Value Read Back Blood Gas Notified Time Potassium Carbon Dioxide Anion Gap BUN Creatinine Est GFR ( Amer) Est GFR (Non-Af Amer) POC Glucose (mg/dL) Random Glucose Calcium Phosphorus Magnesium Total Bilirubin AST ALT Alkaline Phosphatase Lactate Dehydrogenase Troponin I Total Protein Albumin Globulin Albumin/Globulin Ratio Procalcitonin TSH 3rd Generation Urine Color Urine Clarity Urine pH Ur Specific [place] Urine Protein Urine Glucose (UA) Urine Ketones Urine Blood Urine Nitrate Urine Bilirubin Urine Urobilinogen Ur Leukocyte Esterase Urine RBC (Auto) Urine Microscopic WBC Ur Squamous Epith Cells Hepatitis A IgM Ab Hep Bs Antigen Hep B Core IgM Ab Hepatitis C Antibody HIV-1 Ab Rapid Screen Non reactive HIV-1 RNA Qnt (RT-PCR) HIV 1&2 Ag/Ab, 4th Gen Influenza Typ A,B (EIA) Negative for flu a/b Blood Parasites Smear Negative 02/16/17 02/16/17 02/16/17 18:43 18:43 19:40 WBC RBC Hgb Hct MCV MCH MCHC RDW Plt Count MPV Neut % (Auto) Lymph % (Auto) [place] % (Auto) Eos % (Auto) Baso % (Auto) Neut # Lymph # [place] # Eos # Baso # PT INR APTT pO2 VBG pH VBG pCO2 VBG HCO3 VBG Total CO2 VBG O2 Sat (Calc) VBG Base Excess Sodium Chloride Glucose Lactate FiO2 Blood Gas Comments Crit Value Called To Crit Value Called By Crit Value Read Back Blood Gas Notified Time Potassium Carbon Dioxide Anion Gap BUN Creatinine Est GFR ( Amer) Est GFR (Non-Af Amer) POC Glucose (mg/dL) Random Glucose Calcium Phosphorus Magnesium Total Bilirubin AST ALT Alkaline Phosphatase Lactate Dehydrogenase 676 H Troponin I Total Protein Albumin Globulin Albumin/Globulin Ratio Procalcitonin 0.33 TSH 3rd Generation Urine Color Urine Clarity Urine pH Ur Specific [place] Urine Protein Urine Glucose (UA) Urine Ketones Urine Blood Urine Nitrate Urine Bilirubin Urine Urobilinogen Ur Leukocyte Esterase Urine RBC (Auto) Urine Microscopic WBC Ur Squamous Epith Cells Hepatitis A IgM Ab Hep Bs Antigen Hep B Core IgM Ab Hepatitis C Antibody HIV-1 Ab Rapid Screen HIV-1 RNA Qnt (RT-PCR) HIV 1&2 Ag/Ab, 4th Gen Nonreactive Influenza Typ A,B (EIA) Blood Parasites Smear 02/16/17 02/16/17 02/17/17 20:40 20:40 04:00 WBC 7.0 RBC 4.71 Hgb 13.4 Hct 40.8 MCV 86.6 MCH 28.5 MCHC 32.9 L RDW 15.9 H Plt Count 420 H MPV 6.9 L Neut % (Auto) 48.9 L Lymph % (Auto) 39.8 [place] % (Auto) 10.0 Eos % (Auto) 0.7 Baso % (Auto) 0.6 Neut # 3.4 Lymph # 2.8 [place] # 0.7 Eos # 0.0 Baso # 0.0 PT INR APTT pO2 VBG pH VBG pCO2 VBG HCO3 VBG Total CO2 VBG O2 Sat (Calc) VBG Base Excess Sodium Chloride Glucose Lactate FiO2 Blood Gas Comments Crit Value Called To Crit Value Called By Crit Value Read Back Blood Gas Notified Time Potassium Carbon Dioxide Anion Gap BUN Creatinine Est GFR ( Amer) Est GFR (Non-Af Amer) POC Glucose (mg/dL) Random Glucose Calcium Phosphorus Magnesium Total Bilirubin AST ALT Alkaline Phosphatase Lactate Dehydrogenase Troponin I Total Protein Albumin Globulin Albumin/Globulin Ratio Procalcitonin TSH 3rd Generation Urine Color Urine Clarity Urine pH Ur Specific [place] Urine Protein Urine Glucose (UA) Urine Ketones Urine Blood Urine Nitrate Urine Bilirubin Urine Urobilinogen Ur Leukocyte Esterase Urine RBC (Auto) Urine Microscopic WBC Ur Squamous Epith Cells Hepatitis A IgM Ab Negative Hep Bs Antigen Negative Hep B Core IgM Ab Negative Hepatitis C Antibody Negative HIV-1 Ab Rapid Screen HIV-1 RNA Qnt (RT-PCR) <1.30 not detected HIV 1&2 Ag/Ab, 4th Gen Influenza Typ A,B (EIA) Blood Parasites Smear 02/17/17 02/17/17 02/18/17 05:35 11:45 06:00 WBC 6.7 RBC 4.63 Hgb 13.4 Hct 39.7 MCV 85.6 MCH 28.8 MCHC 33.7 RDW 15.6 H Plt Count 455 H MPV 6.9 L Neut % (Auto) 48.4 L Lymph % (Auto) 42.7 H [place] % (Auto) 7.8 Eos % (Auto) 0.5 Baso % (Auto) 0.6 Neut # 3.3 Lymph # 2.9 [place] # 0.5 Eos # 0.0 Baso # 0.0 PT INR APTT pO2 VBG pH VBG pCO2 VBG HCO3 VBG Total CO2 VBG O2 Sat (Calc) VBG Base Excess Sodium 139 Chloride 107 Glucose Lactate FiO2 Blood Gas Comments Crit Value Called To Crit Value Called By Crit Value Read Back Blood Gas Notified Time Potassium 4.5 Carbon Dioxide 24 Anion Gap 13 BUN 11 Creatinine 1.1 Est GFR ( Amer) > 60 Est GFR (Non-Af Amer) > 60 POC Glucose (mg/dL) Random Glucose 100 Calcium 9.0 Phosphorus Magnesium Total Bilirubin AST ALT Alkaline Phosphatase Lactate Dehydrogenase Troponin I Total Protein Albumin Globulin Albumin/Globulin Ratio Procalcitonin TSH 3rd Generation Urine Color Urine Clarity Urine pH Ur Specific [place] Urine Protein Urine Glucose (UA) Urine Ketones Urine Blood Urine Nitrate Urine Bilirubin Urine Urobilinogen Ur Leukocyte Esterase Urine RBC (Auto) Urine Microscopic WBC Ur Squamous Epith Cells Hepatitis A IgM Ab Hep Bs Antigen Hep B Core IgM Ab Hepatitis C Antibody HIV-1 Ab Rapid Screen HIV-1 RNA Qnt (RT-PCR) HIV 1&2 Ag/Ab, 4th Gen Influenza Typ A,B (EIA) Blood Parasites Smear Negative 02/18/17 06:00 WBC RBC Hgb Hct MCV MCH MCHC RDW Plt Count MPV Neut % (Auto) Lymph % (Auto) [place] % (Auto) Eos % (Auto) Baso % (Auto) Neut # Lymph # [place] # Eos # Baso # PT INR APTT pO2 VBG pH VBG pCO2 VBG HCO3 VBG Total CO2 VBG O2 Sat (Calc) VBG Base Excess Sodium 138 Chloride 108 H Glucose Lactate FiO2 Blood Gas Comments Crit Value Called To Crit Value Called By Crit Value Read Back Blood Gas Notified Time Potassium 4.5 Carbon Dioxide 20 L Anion Gap 15 BUN 10 Creatinine 0.9 Est GFR ( Amer) > 60 Est GFR (Non-Af Amer) > 60 POC Glucose (mg/dL) Random Glucose 97 Calcium 8.4 Phosphorus Magnesium Total Bilirubin 0.8 AST 46 ALT 38 Alkaline Phosphatase 119 Lactate Dehydrogenase Troponin I Total Protein 7.6 Albumin 3.4 L Globulin 4.2 H Albumin/Globulin Ratio 0.8 L Procalcitonin TSH 3rd Generation Urine Color Urine Clarity Urine pH Ur Specific [place] Urine Protein Urine Glucose (UA) Urine Ketones Urine Blood Urine Nitrate Urine Bilirubin Urine Urobilinogen Ur Leukocyte Esterase Urine RBC (Auto) Urine Microscopic WBC Ur Squamous Epith Cells Hepatitis A IgM Ab Hep Bs Antigen Hep B Core IgM Ab Hepatitis C Antibody HIV-1 Ab Rapid Screen HIV-1 RNA Qnt (RT-PCR) HIV 1&2 Ag/Ab, 4th Gen Influenza Typ A,B (EIA) Blood Parasites Smear Microbiology 02/16/17 11:45 Blood Blood Culture - Preliminary NO GROWTH AFTER 48 HOURS 02/16/17 11:30 Blood Blood Culture - Preliminary NO GROWTH AFTER 48 HOURS 02/16/17 21:00 Blood-Venous Blood Culture - Preliminary NO GROWTH AFTER 24 HOURS 02/16/17 20:40 Blood-Venous Blood Culture - Preliminary NO GROWTH AFTER 24 HOURS 02/16/17 13:30 Urine Urine Culture - Final No Growth (<1,000 CFU/ML) Assessment and Plan (1) Weakness Status: Acute (2) Fever Status: Acute - Assessment and Plan (Free Text) Assessment: A/P- 62 year old male with no pmh other than HTN presents with FUO with recent travel to [place]. clinically feels better today. still has temp but low grade normal wbc count, no left shift so far all work up has been negative including HIV and hep c and hep B and Hep A. blood smear for parasite - negative x 2 blood cx- neg x 4 UA and urine cx- neg abd/pelvic/chest CT -negative as per report. influenza- neg transaminitis has resolved. plan- await dengue serology. await chikungunya serology. await west [place]ile virus serology and yellow fever IGM serology. await salmonella typhi and paratyphi serology. await result of TTE. also would advise to check LP rule out viral meningitis if above remains negative and if continues to have temp. check CSF for gram stain and culture and HSV PCR and AFB and fungal. await quantiferon gold. await ricketsial serology await ehrlichia and anaplasmosis as well. place on airborne isolation pending further results. all above d/w patient and he verbalizes full understanding of all above.
--- NOTE | 2017-02-18 16:22 | CP.PCM.PN ---
Subjective - Date & Time of Evaluation Date of Evaluation: 02/18/17 Time of Evaluation: 12:30 - Subjective Subjective: Patient was seen and examined bedside. Feeling better. Denies any cough, sore throat, neck pain or stiffness, TORRES, ear ache , muscle aches or pains, jaw pain, abdominal pain, urinary sx changes in bowel movements Afebrile last 12 hours and WBC count is normal Admits to having used antibiotics for total 9 days prior to admission to hospital ( cefepime for 4 days and Bactrim for 5 days ) Objective - Vital Signs/Intake and Output Vital Signs (last 24 hours): Temp Pulse Resp BP Pulse Ox 100.8 F H 87 20 111/78 99 02/18/17 16:15 02/18/17 16:15 02/18/17 16:15 02/18/17 16:15 02/18/17 16:15 Intake and Output: 02/18/17 02/18/17 06:59 18:59 Intake Total 2200 Balance 2200 - Medications Medications: Current Medications Acetaminophen (Tylenol 325mg Tab) 650 mg PO Q6 PRN PRN Reason: Fever >100.4 F Last Admin: 02/17/17 12:20 Dose: 650 mg Amlodipine Besylate (Norvasc) 5 mg PO DAILY [facility] Last Admin: 02/18/17 09:08 Dose: 5 mg Atorvastatin Calcium (Lipitor) 10 mg PO HS [facility] Last Admin: 02/17/17 21:54 Dose: 10 mg Sodium Chloride (Sodium Chloride 0.9%) 1,000 mls @ 100 mls/hr IV .Q10H [facility] Last Admin: 02/18/17 09:09 Dose: 100 mls/hr Losartan Potassium (Cozaar) 50 mg PO DAILY [facility] Last Admin: 02/18/17 09:08 Dose: 50 mg - Labs Labs: 02/18/17 06:00 02/18/17 06:00 PT 11.9 Seconds (9.8-13.1) 02/16/17 11:55 INR 1.2 (0.9-1.2) 02/16/17 11:55 APTT 29.7 Seconds (25.6-37.1) 02/16/17 11:55 - Constitutional Appears: Non-toxic, No Acute Distress - Head Exam Head Exam: ATRAUMATIC, NORMAL INSPECTION, NORMOCEPHALIC - Eye Exam Eye Exam: EOMI, Normal appearance, PERRL Pupil Exam: NORMAL ACCOMODATION - ENT Exam ENT Exam: Mucous Membranes Moist, Normal Exam - Neck Exam Neck Exam: Full ROM, Normal Inspection - Respiratory Exam Respiratory Exam: Clear to Ausculation Bilateral, NORMAL BREATHING PATTERN. absent: Rales, Rhonchi, Wheezes - Cardiovascular Exam Cardiovascular Exam: REGULAR RHYTHM, RRR, +S1, +S2. absent: JVD - Rectal Exam Rectal Exam: Deferred - Extremities Exam Extremities Exam: Full ROM, Normal Capillary Refill, Normal Inspection - Back Exam Back Exam: NORMAL INSPECTION - Neurological Exam Neurological Exam: Alert, Awake, CN II-XII Intact, Oriented x3 - Psychiatric Exam Psychiatric exam: Normal Affect - Skin Skin Exam: Dry, Intact, Normal Color, Warm Assessment and Plan - Assessment and Plan (Free Text) Assessment: 62 y/o gent, with hx of HTN, Hyperlipidemia just came from [place] yesterday, presented to hospital with fever. As per patient he has been experiencing fever , poor po intake generalized weakness for 11 days. He was started on Cefepime for 4 days and afterwards Bactrim Po for 5 days in his home country ( has been on antibiotics for 9 days).He denies any other systemic signs,denies any cough, sore throat, neck pain or stiffness, TORRES, ear ache , muscle aches or pains, jaw pain, abdominal pain, urinary sx changes in bowel movements. He was admitted with fever of unknown origin and ID was consulted At present dpoing well, afebrile for 12 hours 1.FUO (fever of unknown origin) Acute Etiology to be determined Afebrile for 12 hours, WBC normal CT of abd and Chest showed no acute pathology HIV negative Infuenza negative Hepatitis screen negative UA : negative malaria test : neg salmonella test to r/o typhoid F/u RPR, Quantiferon,blood c/s, urine c/s,ECHO Isolated pt ID on consult , Dr Abreu follow up Rickettsia, West Nile, Chikugunya, Dengue, Yellow Fever 2. HTN (hypertension) chronic cont Losartan and Norvasc 3.DVT prophylaxis Acute SCD for now
--- NOTE | 2017-02-18 17:11 | CARD ---
APPROVED REPORT EXAM: Two-dimensional and M-mode echocardiogram with Doppler and color Doppler. Other Information Quality : GoodRhythm : NSR INDICATION Infection:Subacute bacterial endocarditis 2D DIMENSIONS IVSd0.91 (0.7-1.1cm)LVDd4.51 (3.9-5.9cm) LVOT Diameter2.00 (1.8-2.4cm)PWd1.02 (0.7-1.1cm) IVSs1.23 (0.8-1.2cm)LVDs2.68 (2.5-4.0cm) FS (%) 40.5 %PWs1.29 (0.8-1.2cm) M-Mode DIMENSIONS Left Atrium (MM)4.79 (2.5-4.0cm)IVSd1.03 (0.7-1.1cm) Aortic Root3.38 (2.2-3.7cm)LVDd4.76 (4.0-5.6cm) Aortic Cusp Exc.2.21 (1.5-2.0cm)PWd1.18 (0.7-1.1cm) IVSs1.65 cmFS (%) 44 % LVDs2.65 (2.0-3.8cm)PWs1.91 cm Mitral Valve MV E Uiqgrgcd59.1cm/sMV DECEL [id number] A Fcattfii88.9cm/s MV ZCU00heA/A ratio1.1MVA (PHT)4.26cm2 TDI Lateral E' Peak V15.07cm/sMedial E' Peak V8.88cm/sE/Lateral E'4.1 E/Medial E'6.9 Pulmonary Valve PV Peak Uwcicwks473.1cm/s Tricuspid Valve TR Peak Ouooryos512mq/sRAP [id number] Peak Gr.26mmHg [id number] LEFT VENTRICLE The left ventricle is normal size. There is normal left ventricular wall thickness. Left ventricle systolic function is normal. The Ejection Fraction is 60-65%. There is normal LV segmental wall motion. Transmitral Doppler flow pattern is Grade I-abnormal relaxation pattern. RIGHT VENTRICLE The right ventricle is normal size. There is normal right ventricular wall thickness. The right ventricular systolic function is normal. ATRIA The left atrium size is normal. The right atrium size is normal. AORTIC VALVE The aortic valve is mildly to moderately sclerotic. There is mild to moderate aortic regurgitation. There is no aortic valvular stenosis. MITRAL VALVE The mitral valve is normal in structure. There is no evidence of mitral valve prolapse. There is no mitral valve stenosis. Mitral regurgitation is trace to mild. TRICUSPID VALVE The tricuspid valve is normal in structure. There is mild tricuspid regurgitation. Right ventricular systolic pressure is estimated at 36 mmHg. There is mild pulmonary hypertension. PULMONIC VALVE The pulmonary valve is normal in structure and function. There is no pulmonic valvular regurgitation. GREAT VESSELS The aortic root is normal in size. The IVC is normal in size and collapses >50% with inspiration. PERICARDIAL EFFUSION The pericardium appears normal. <Conclusion> The left ventricle is normal size. There is normal left ventricular wall thickness. There is normal LV segmental wall motion. Left ventricle systolic function is normal. The Ejection Fraction is 60-65%. Transmitral Doppler flow pattern is Grade I-abnormal relaxation pattern. There is mild to moderate aortic regurgitation. No vegetations seen on this TTE.
[2017-02-18 20:51] LABS: WNV AB IGG 3.89
[2017-02-18 21:11] LABS: WNV AB IGM 0.34
[2017-02-19 07:01] LABS: MEAN CELL VOLUME 86.2 fl (80.0-94.0); MEAN CORPUSCULAR HEMOGLOBIN 28.9 pg (27.0-31.0); MEAN CORPUSCULAR HGB CONC 33.5 g/dL (33.0-37.0); RED CELL DISTRIBUTION WIDTH 15.8 % (11.5-14.5); WHITE BLOOD COUNT 6.3 K/uL (4.8-10.8)
[2017-02-19 07:54] LABS: ALB/GLOB RATIO 0.8 (1.0-2.1); ALKALINE PHOSPHATASE 129 U/L (38-126); ALT/SGPT 44 U/L (21-72); AST/SGOT 49 U/L (17-59); BILIRUBIN,TOTAL 0.7 mg/dl (0.2-1.3); BLOOD UREA NITROGEN 10 mg/dl (9-20); CALCIUM 8.9 mg/dL (8.4-10.2); CARBON DIOXIDE 23 mmol/L (22-30); CHLORIDE 108 mmol/L (98-107); GFR AFRICAN-AMERICAN > 60; GLUCOSE,RANDOM 106 mg/dL (75-110); POTASSIUM 4.1 MMOL/L (3.6-5.0); SODIUM 141 mmol/l (132-148); TOTAL PROTEIN 8.3 G/DL (6.3-8.2)
--- NOTE | 2017-02-19 09:20 | CT ---
PROCEDURE: CT scan of the neck dated 02/18/2017 HISTORY: Rule out lymphadenopathy COMPARISON: None TECHNIQUE: Contiguous the helical/ transaxial sections of the neck performed without intravenous contrast. Coronal and sagittal reformats generated. This CT exam was performed using one or more of the following dose reduction techniques: Automated exposure control, adjustment of the mA and/or kV according to patient size, and/or use of iterative reconstruction technique. Radiation dose: DLP 541.41 mGy-cm FINDINGS: The current study reveals no evidence of large the cervical mass or collection. Multiple bilateral cervical lymph nodes are present within the posterior cervical spaces, jugulodigastric, submandibular and submental regions. Several small lymph nodes are also present within the anterior cervical region just above the supraclavicular spaces. The largest on left submandibular lymph node measures approximately 2.38 cm in length though does contain a fatty center. The the largest left submental lymph node 0.97 the the the largest left-sided jugulodigastric lymph node measures approximately 1.3 cm the in greatest length. Largest right-sided jugulodigastric lymph node measures approximately 1.2 cm. . Small mid anterior superior mediastinal lymph node is present just dorsal to the clavicular heads and anterior to the trachea. The parotid and submandibular glands are grossly unremarkable without masses collections or calcifications. No obvious inflammatory changes. Evaluation of the vasculature limited due to the lack of circulating intravenous contrast material. . There is a small calcification in the right aspect of the vallecula and in the region of the inferior aspect of the left palatine tonsil. Findings are likely postinflammatory dystrophic type calcifications. There is some irregular soft tissue within the vallecular that could represent some encroachment of lingual tonsils and possibly some residual/retained secretion. Free margin of the epiglottis unremarkable. Pyriform sinuses are asymmetric left-sided which is not seen and the right-side small in volume. The no obvious on lesions seen in the at region of the aryepiglottic folds. The true vocal cords appear relatively symmetric. There is opacification of there are focal areas of either polypoid like mucosal thickening and/or mucous retention cysts present in both maxillary sinuses right larger than left. Mild multilevel degenerative spondylosis of the cervical spine. The lung apices demonstrates some minimal atelectasis however no effusion or apical pneumothorax. . IMPRESSION: Impression: There are multiple nonspecific bilateral cervical lymph nodes are somewhat prominent although exhibit relatively normal width. Clinical correlation recommended See above discussion for additional details and findings.
--- NOTE | 2017-02-19 09:49 | CP.PCM.PN ---
Subjective - Date & Time of Evaluation Date of Evaluation: 02/19/17 Objective - Vital Signs/Intake and Output Vital Signs (last 24 hours): Temp Pulse Resp BP Pulse Ox 98.5 F 82 20 149/95 H 96 02/19/17 08:00 02/19/17 09:41 02/19/17 08:00 02/19/17 09:41 02/19/17 08:00 Intake and Output: 02/19/17 02/19/17 06:59 18:59 Intake Total 1300 Balance 1300 - Medications Medications: Current Medications Acetaminophen (Tylenol 325mg Tab) 650 mg PO Q6 PRN PRN Reason: Fever >100.4 F Last Admin: 02/18/17 16:23 Dose: 650 mg Amlodipine Besylate (Norvasc) 5 mg PO DAILY [facility] Last Admin: 02/19/17 09:41 Dose: 5 mg Atorvastatin Calcium (Lipitor) 10 mg PO HS [facility] Last Admin: 02/18/17 21:41 Dose: 10 mg Sodium Chloride (Sodium Chloride 0.9%) 1,000 mls @ 100 mls/hr IV .Q10H [facility] Last Admin: 02/18/17 17:35 Dose: Not Given Losartan Potassium (Cozaar) 50 mg PO DAILY [facility] Last Admin: 02/19/17 09:41 Dose: 50 mg - Labs Labs: 02/19/17 06:00 02/19/17 06:00 PT 11.9 Seconds (9.8-13.1) 02/16/17 11:55 INR 1.2 (0.9-1.2) 02/16/17 11:55 APTT 29.7 Seconds (25.6-37.1) 02/16/17 11:55 Assessment and Plan (1) Weakness Status: Acute (2) Fever Status: Acute
[2017-02-19] MEDS: Sodium Chloride 0.9% 1,000 ML IV SCH ×4 (12:14→22:00)
[2017-02-19 12:24] LABS: R. TYPHI IGM Not Detected (Not Detected)
--- NOTE | 2017-02-19 13:27 | CP.PCM.PN ---
Subjective - Date & Time of Evaluation Date of Evaluation: 02/19/17 Time of Evaluation: 13:30 - Subjective Subjective: Patient was seen and examined bedside. Feeling much better. Last fever episode yesterday @ 4 PM . No acute issues overnight. Hemodynamically stable. Objective - Vital Signs/Intake and Output Vital Signs (last 24 hours): Temp Pulse Resp BP Pulse Ox 97.1 F L 71 18 158/58 H 97 02/19/17 12:00 02/19/17 12:00 02/19/17 12:00 02/19/17 12:00 02/19/17 12:00 Intake and Output: 02/19/17 02/19/17 06:59 18:59 Intake Total 1300 Balance 1300 - Medications Medications: Current Medications Acetaminophen (Tylenol 325mg Tab) 650 mg PO Q6 PRN PRN Reason: Fever >100.4 F Last Admin: 02/18/17 16:23 Dose: 650 mg Amlodipine Besylate (Norvasc) 5 mg PO DAILY [facility] Last Admin: 02/19/17 09:41 Dose: 5 mg Atorvastatin Calcium (Lipitor) 10 mg PO HS [facility] Last Admin: 02/18/17 21:41 Dose: 10 mg Sodium Chloride (Sodium Chloride 0.9%) 1,000 mls @ 100 mls/hr IV .Q10H [facility] Last Admin: 02/19/17 12:14 Dose: 100 mls/hr Losartan Potassium (Cozaar) 50 mg PO DAILY [facility] Last Admin: 02/19/17 09:41 Dose: 50 mg - Labs Labs: 02/19/17 06:00 02/19/17 06:00 PT 11.9 Seconds (9.8-13.1) 02/16/17 11:55 INR 1.2 (0.9-1.2) 02/16/17 11:55 APTT 29.7 Seconds (25.6-37.1) 02/16/17 11:55 - Constitutional Appears: Well, Non-toxic, No Acute Distress - Head Exam Head Exam: ATRAUMATIC, NORMAL INSPECTION, NORMOCEPHALIC - Eye Exam Eye Exam: EOMI, Normal appearance, PERRL Pupil Exam: NORMAL ACCOMODATION - ENT Exam ENT Exam: Mucous Membranes Moist, Normal Exam - Neck Exam Neck Exam: Full ROM, Normal Inspection - Respiratory Exam Respiratory Exam: Clear to Ausculation Bilateral, NORMAL BREATHING PATTERN. absent: Rales, Rhonchi, Wheezes - Cardiovascular Exam Cardiovascular Exam: REGULAR RHYTHM, RRR, +S1, +S2. absent: JVD - GI/Abdominal Exam GI & Abdominal Exam: Soft, Normal Bowel Sounds. absent: Distended, Guarding, Tenderness, Rebound - Rectal Exam Rectal Exam: Deferred - Extremities Exam Extremities Exam: Full ROM, Normal Capillary Refill, Normal Inspection. absent : Calf Tenderness, Pedal Edema - Back Exam Back Exam: NORMAL INSPECTION. absent: paraspinal tenderness, vertebral tenderness - Neurological Exam Neurological Exam: Alert, Awake, CN II-XII Intact, Normal Gait, Oriented x3 - Psychiatric Exam Psychiatric exam: Normal Affect, Normal Mood - Skin Skin Exam: Dry, Intact, Normal Color, Warm. absent: Pallor, Rash Assessment and Plan - Assessment and Plan (Free Text) Assessment: 62 y/o gent, with hx of HTN, Hyperlipidemia just came from [place] yesterday, presented to hospital with fever. As per patient he has been experiencing fever , poor po intake generalized weakness for 11 days. He was started on Cefepime for 4 days and afterwards [place]act[place] ( has been on antibiotics for 9 days).He denies any other systemic signs,denies any cough, sore throat, neck pain or stiffness, TORRES, ear ache , muscle aches or pains, jaw pain, abdominal pain, urinary sx changes in bowel movements. He was admitted with fever of unknown origin and ID was consulted At present doing well, afebrile for 12 hours 1.FUO (fever of unknown origin) Acute Etiology to be determined Afebrile for 12 hours, WBC normal patient improved clinically CT of abd and Chest showed no acute pathology CT neck showed non specific LN CXR showed no active disease CT head normal Peripheral smear showed increase lymphocytic % . Sigrid fever persists may consult Hematology for possible bone marrow biopsy ESR 92 HIV negative Influenza negative Hepatitis screen negative UA : negative malaria test : neg salmonella test to r/o typhoid F/u RPR, Quantiferon,blood c/s, urine c/s, ECHO showed no vegetations Isolated patient as per ID ID on consult , Dr Brady Ramirezia, [place]- negative , f/u Chikugunya, Dengue, Yellow Fever 2. HTN (hypertension) chronic cont Losartan and Norvasc Start HCTZ ( home med ) 3.DVT prophylaxis Acute SCD for now
[2017-02-19 13:51] LABS: R. TYPHI IGG Not Detected (Not Detected); RMSF IGG Detected (Not Detected)
[2017-02-20 06:32] LABS: HEMATOCRIT 38.5 % (35.0-51.0); MEAN CELL VOLUME 86.2 fl (80.0-94.0); MEAN CORPUSCULAR HEMOGLOBIN 28.9 pg (27.0-31.0); MEAN CORPUSCULAR HGB CONC 33.5 g/dL (33.0-37.0); RED CELL DISTRIBUTION WIDTH 15.5 % (11.5-14.5); WHITE BLOOD COUNT 5.7 K/uL (4.8-10.8)
[2017-02-20 06:45] LABS: BLOOD UREA NITROGEN 8 mg/dl (9-20); CALCIUM 8.7 mg/dL (8.4-10.2); CARBON DIOXIDE 24 mmol/L (22-30); CHLORIDE 108 mmol/L (98-107); GFR AFRICAN-AMERICAN > 60; GLUCOSE,RANDOM 108 mg/dL (75-110); POTASSIUM 3.9 MMOL/L (3.6-5.0); SODIUM 141 mmol/l (132-148)
[2017-02-20] MEDS: Sodium Chloride 0.9% 1,000 ML IV SCH ×2 (09:33→09:35)
--- NOTE | 2017-02-20 13:55 | CP.PCM.PN ---
Subjective - Date & Time of Evaluation Date of Evaluation: 02/20/17 Time of Evaluation: 12:30 - Subjective Subjective: No fever for 2 days Pt denies any sxs No Headache no neck rigidity no CP no cough no abd pain no dysuria no palpable genital mass no diaarhea no urethral discharge Objective - Vital Signs/Intake and Output Vital Signs (last 24 hours): Temp Pulse Resp BP Pulse Ox 98.1 F 75 18 157/91 H 99 02/20/17 11:47 02/20/17 11:47 02/20/17 11:47 02/20/17 11:47 02/20/17 11:47 - Medications Medications: Current Medications Acetaminophen (Tylenol 325mg Tab) 650 mg PO Q6 PRN PRN Reason: Fever >100.4 F Last Admin: 02/18/17 16:23 Dose: 650 mg Amlodipine Besylate (Norvasc) 5 mg PO DAILY [facility] Last Admin: 02/20/17 09:32 Dose: 5 mg Atorvastatin Calcium (Lipitor) 10 mg PO HS [facility] Last Admin: 02/19/17 21:43 Dose: 10 mg Hydrochlorothiazide (Hydrodiuril) 25 mg PO DAILY [facility] Last Admin: 02/20/17 09:32 Dose: 25 mg Sodium Chloride (Sodium Chloride 0.9%) 1,000 mls @ 100 mls/hr IV .Q10H [facility] Last Admin: 02/20/17 09:35 Dose: 100 mls/hr Losartan Potassium (Cozaar) 50 mg PO DAILY [facility] Last Admin: 02/20/17 09:32 Dose: 50 mg - Labs Labs: 02/20/17 05:30 02/20/17 05:30 PT 11.9 Seconds (9.8-13.1) 02/16/17 11:55 INR 1.2 (0.9-1.2) 02/16/17 11:55 APTT 29.7 Seconds (25.6-37.1) 02/16/17 11:55 - Constitutional Appears: Non-toxic, No Acute Distress - Head Exam Head Exam: ATRAUMATIC, NORMAL INSPECTION, NORMOCEPHALIC - Eye Exam Eye Exam: EOMI, Normal appearance, PERRL Pupil Exam: NORMAL ACCOMODATION - ENT Exam ENT Exam: Mucous Membranes Moist, Normal External Ear Exam - Neck Exam Neck Exam: Full ROM. absent: Lymphadenopathy, Meningismus - Respiratory Exam Respiratory Exam: Rhonchi, NORMAL BREATHING PATTERN. absent: Wheezes, Respiratory Distress - Cardiovascular Exam Cardiovascular Exam: REGULAR RHYTHM, +S1, +S2 - GI/Abdominal Exam GI & Abdominal Exam: Soft, Normal Bowel Sounds. absent: Tenderness - Extremities Exam Extremities Exam: Full ROM, Normal Capillary Refill, Tenderness. absent: Calf Tenderness, Pedal Edema - Back Exam Back Exam: Full ROM, NORMAL INSPECTION. absent: CVA tenderness (L), CVA tenderness (R), paraspinal tenderness, vertebral tenderness - Neurological Exam Neurological Exam: Alert, Awake, CN II-XII Intact, Normal Gait, Oriented x3 Neuro motor strength exam: Left Upper Extremity: 5, Right Upper Extremity: 5, Left Lower Extremity: 5, Right Lower Extremity: 5 - Skin Skin Exam: Dry, Normal Color, Warm Assessment and Plan (1) FUO (fever of unknown origin) Status: Acute (2) HTN (hypertension) Status: Acute (3) DVT prophylaxis Status: Acute - Assessment and Plan (Free Text) Assessment: 62 y/o gent, with hx of HTN, Hyperlipidemia just came back from [place] on day of admission ,presented to hospital with fever. As per patient he has been experiencing fever, poor po intake generalized weakness for 11 days. He was started on Cefepime for 4 days and afterwards Bactrim [place] ( has been on antibiotics for 9 days).He denies any other systemic signs ,denies any cough, sore throat, neck pain or stiffness, TORRES, ear ache , muscle aches or pains, jaw pain, abdominal pain, urinary sx changes in bowel movements. He was admitted with fever of unknown origin and ID was consulted At present doing well, afebrile for 12 hours. 1.FUO (fever of unknown origin) Acute Etiology remains unclear Afebrile for 2 days , WBC normal patient improved clinically CT of abd and Chest showed no acute pathology ( non contrast ) -pt refused rpt CT with contrast CT neck showed non specific LN CXR showed no active disease CT head normal Peripheral smear showed increase lymphocytic % . If fever persists may consult Hematology for possible bone marrow biopsy ESR 92 HIV negative Influenza negative Hepatitis screen negative UA : negative malaria test : neg salmonella test to r/o typhoid: pending RPR, Quantiferon,blood c/s, urine c/s, : negative ECHO showed no vegetations Isolated patient as per ID ID on consult , Dr Abreu Rickettsia: negative [place]- negative f/u Chikugunya, Dengue, Yellow Fever - pending Pt refused Spinal Tap 2. HTN (hypertension) chronic cont Losartan and Norvasc Start HCTZ ( home med ) 3.DVT prophylaxis Acute SCD Lovenox
[2017-02-20] MEDS ORDERED: Enoxaparin 40 mg Syringe SC STA (16:58)
[2017-02-20 18:21] LABS: DENGUE FEVER AB (IGG) 3.79; DENGUE FEVER AB (IGM) 0.24
[2017-02-20 23:45] VITALS: RESP 18
[2017-02-21] MEDS: Sodium Chloride 0.9% 1,000 ML IV SCH (05:07)
[2017-02-21 08:19] VITALS: BP 145/90; PULSE 70
[2017-02-21 11:01] VITALS: TEMP 98.4; O2SAT 98
--- NOTE | 2017-02-21 11:10 | CP.PCM.DIS ---
Provider - Provider Date of Admission: 02/17/17 13:20 Attending physician: Roland Meneses DO Consults: ID : Dr Abreu Time Spent in preparation of Discharge (in minutes): 35 Diagnosis - Discharge Diagnosis (1) FUO (fever of unknown origin) Status: Acute (2) HTN (hypertension) Status: Chronic (3) DVT prophylaxis Status: Acute Hospital Course - Lab Results Lab Results: Most Recent Lab Values WBC 5.7 K/uL (4.8-10.8) 02/20/17 05:30 RBC 4.46 Mil/uL (4.40-5.90) 02/20/17 05:30 Hgb 12.9 g/dL (12.0-18.0) 02/20/17 05:30 Hct 38.5 % (35.0-51.0) 02/20/17 05:30 MCV 86.2 fl (80.0-94.0) 02/20/17 05:30 MCH 28.9 pg (27.0-31.0) 02/20/17 05:30 MCHC 33.5 g/dL (33.0-37.0) 02/20/17 05:30 RDW 15.5 % (11.5-14.5) H 02/20/17 05:30 Plt Count 432 K/uL (130-400) H 02/20/17 05:30 MPV 6.9 fl (7.2-11.7) L 02/18/17 06:00 Neut % (Auto) 48.4 % (50.0-75.0) L 02/18/17 06:00 Lymph % (Auto) 42.7 % (20.0-40.0) H 02/18/17 06:00 Crisp % (Auto) 7.8 % (0.0-10.0) 02/18/17 06:00 Eos % (Auto) 0.5 % (0.0-4.0) 02/18/17 06:00 Baso % (Auto) 0.6 % (0.0-2.0) 02/18/17 06:00 Neut # 3.3 K/uL (1.8-7.0) 02/18/17 06:00 Lymph # 2.9 K/uL (1.0-4.3) 02/18/17 06:00 Crisp # 0.5 K/uL (0.0-0.8) 02/18/17 06:00 Eos # 0.0 K/uL (0.0-0.7) 02/18/17 06:00 Baso # 0.0 K/uL (0.0-0.2) 02/18/17 06:00 ESR 92 mm/hr (0-20) H 02/19/17 06:00 PT 11.9 Seconds (9.8-13.1) 02/16/17 11:55 INR 1.2 (0.9-1.2) 02/16/17 11:55 APTT 29.7 Seconds (25.6-37.1) 02/16/17 11:55 pO2 28 mm/Hg (30-55) L 02/16/17 11:37 VBG pH 7.46 (7.32-7.43) H 02/16/17 11:37 VBG pCO2 41 mmHg (40-60) 02/16/17 11:37 VBG HCO3 27.2 mmol/L 02/16/17 11:37 VBG Total CO2 30.5 mmol/L (22-28) H 02/16/17 11:37 VBG O2 Sat (Calc) 55.4 % (40-65) 02/16/17 11:37 VBG Base Excess 4.8 mmol/L (0.0-2.0) H 02/16/17 11:37 Sodium 170.0 mmol/L (132-148) H* 02/16/17 11:37 Chloride 118.0 mmol/L (98-107) H 02/16/17 11:37 Glucose 83 mg/dL (75-110) 02/16/17 11:37 Lactate 1.7 mmol/L (0.7-2.1) 02/16/17 11:37 FiO2 21.0 % 02/16/17 11:37 Blood Gas Comments Vbg 02/16/17 11:37 Crit Value Called To Mitch brunson r.n. 02/16/17 11:37 Crit Value Called By Isaura 02/16/17 11:37 Crit Value Read Back Y 02/16/17 11:37 Blood Gas Notified Time 1156 02/16/17 11:37 Sodium 141 mmol/l (132-148) 02/20/17 05:30 Potassium 3.9 MMOL/L (3.6-5.0) 02/20/17 05:30 Chloride 108 mmol/L (98-107) H 02/20/17 05:30 Carbon Dioxide 24 mmol/L (22-30) 02/20/17 05:30 Anion Gap 13 (10-20) 02/20/17 05:30 BUN 8 mg/dl (9-20) L 02/20/17 05:30 Creatinine 0.9 mg/dL (0.8-1.5) 02/20/17 05:30 Est GFR ( Amer) > 60 02/20/17 05:30 Est GFR (Non-Af Amer) > 60 02/20/17 05:30 POC Glucose (mg/dL) 102 mg/dL (65-110) 02/16/17 11:21 Random Glucose 108 mg/dL (75-110) 02/20/17 05:30 Calcium 8.7 mg/dL (8.4-10.2) 02/20/17 05:30 Phosphorus 2.3 mg/dl (2.5-4.5) L 02/16/17 11:55 Magnesium 2.1 MG/DL (1.6-2.3) 02/16/17 11:55 Total Bilirubin 0.7 mg/dl (0.2-1.3) 02/19/17 06:00 AST 49 U/L (17-59) 02/19/17 06:00 ALT 44 U/L (21-72) 02/19/17 06:00 Alkaline Phosphatase 129 U/L (38-126) H 02/19/17 06:00 Lactate Dehydrogenase 676 U/L (313-618) H 02/16/17 18:43 Troponin I < 0.0120 ng/mL (0.00-0.120) 02/16/17 11:55 Total Protein 8.3 G/DL (6.3-8.2) H 02/19/17 06:00 Albumin 3.7 g/dL (3.5-5.0) 02/19/17 06:00 Globulin 4.6 gm/dL (2.2-3.9) H 02/19/17 06:00 Albumin/Globulin Ratio 0.8 (1.0-2.1) L 02/19/17 06:00 Procalcitonin 0.26 NG/ML (0.19-0.49) 02/19/17 06:00 TSH 3rd Generation 0.81 mIU/ML (0.46-4.68) 02/16/17 11:55 Urine Color Yellow (YELLOW) 02/16/17 13:30 Urine Clarity Clear (Clear) 02/16/17 13:30 Urine pH 7.0 (5.0-8.0) 02/16/17 13:30 Ur Specific [place] 1.012 (1.003-1.030) 02/16/17 13:30 Urine Protein 30 mg/dL (NEGATIVE) 02/16/17 13:30 Urine Glucose (UA) Neg mg/dL (Normal) 02/16/17 13:30 Urine Ketones Negative mg/dL (NEGATIVE) 02/16/17 13:30 Urine Blood Small (NEGATIVE) 02/16/17 13:30 Urine Nitrate Negative (NEGATIVE) 02/16/17 13:30 Urine Bilirubin Negative (NEGATIVE) 02/16/17 13:30 Urine Urobilinogen 0.2-1.0 mg/dL (0.2-1.0) 02/16/17 13:30 Ur Leukocyte Esterase Neg Pierre/uL (Negative) 02/16/17 13:30 Urine RBC (Auto) < 1 /hpf (0-3) 02/16/17 13:30 Urine Microscopic WBC 1 /hpf (0-5) 02/16/17 13:30 Ur Squamous Epith Cells < 1 /hpf (0-5) 02/16/17 13:30 ZAHRAA Screen Negative (Negative) 02/18/17 06:00 RPR Nonreactive (NONREACTIVE) 02/18/17 06:00 Dengue Fever IgG Ab 3.79 H 02/16/17 20:40 Dengue Fever IgM Ab 0.24 02/16/17 20:40 West Nile Virus IgG Ab 3.89 H 02/16/17 18:43 West Nile Virus IgM Ab 0.34 02/16/17 18:43 Hepatitis A IgM Ab Negative (NEGATIVE) 02/16/17 20:40 Hep Bs Antigen Negative (NEGATIVE) 02/16/17 20:40 Hep B Core IgM Ab Negative (NEGATIVE) 02/16/17 20:40 Hepatitis C Antibody Negative (NEGATIVE) 02/16/17 20:40 HSV I IgG Ab 25.90 index H 02/17/17 15:00 HSV II IgG <0.90 index 02/17/17 15:00 HIV-1 Ab Rapid Screen Non reactive (NON REAC) 02/16/17 14:45 HIV-1 RNA Qnt (RT-PCR) <1.30 not detected (<1.30) 02/16/17 20:40 HIV 1&2 Ag/Ab, 4th Gen Nonreactive (Nonreactive) 02/16/17 19:40 Influenza Typ A,B (EIA) Negative for flu a/b (NEGATIVE) 02/16/17 15:00 Blood Parasites Smear Negative (NEGATIVE) 02/17/17 11:45 Rickettsia IgG Titer 1:64 Titer (<1:64) H 02/17/17 15:30 Rickettsia IgG Ab Detected (Not Detected) H 02/17/17 15:30 Rickettsia IgM Titer (()) 02/17/17 15:30 Rickettsia IgM Ab Not detected (Not Detected) 02/17/17 15:30 Rickettsia typhi IgG Not detected (Not Detected) 02/17/17 15:30 R. typhi IgG Ab Titer (()) 02/17/17 15:30 Rickettsia typhi IgM Not detected (Not Detected) 02/17/17 15:30 R. typhi IgM Ab Titer (()) 02/17/17 15:30 Salmonella H Type A Negative 02/17/17 14:30 Salmonella H Type B Negative 02/17/17 14:30 Salmonella H Type D Negative 02/17/17 14:30 Salmonella O Type D Negative 02/17/17 14:30 Salmonella O Type Vi Equivocal H 02/17/17 14:30 TB Test (QFT) Nil 0.11 IU/mL 02/18/17 06:00 TB Test Mitogen - Nil 8.10 IU/mL 02/18/17 06:00 TB Test TB - Nil <0.00 IU/mL 02/18/17 06:00 TB Test (QFT) Negative (Negative) 02/18/17 06:00 - Hospital Course Hospital Course: 62 y/o gent, with hx of HTN, Hyperlipidemia just came back from [place] on day of admission ,presented to hospital with fever. As per patient he has been experiencing fever, poor po intake generalized weakness for 11 days prior to admission. He was admitted to a hospital in [place] and was started on Cefepime for 4 days and afterwards Bactrim Po for 5 days ( has been on antibiotics for 9 days). He said he was extensively worked up for infection in [place] and results were negative. He denies any other systemic signs,denies any cough, sore throat, neck pain or stiffness, TORRES, ear ache , muscle aches or pains , jaw pain, abdominal pain, urinary sx changes in bowel movements. He was admitted with fever of unknown origin and ID was consulted . He was not started on any medication except for antihypertensives he has been taking at home. . Extensive work up for infection did not reveal any abnormality. He has been asymptomatic and afebrile for the past 3 days . Patient refused Spinal Tap . 1.FUO (fever of unknown origin) Acute Etiology remains unclear Afebrile for 2 days , WBC normal patient improved clinically CT of abd and Chest showed no acute pathology ( non contrast ) -pt refused rpt CT with contrast CT neck showed non specific LN CXR showed no active disease CT head normal Peripheral smear showed increase lymphocytic % . If fever persists may consult Hematology for possible bone marrow biopsy ESR 92 HIV negative Influenza negative Hepatitis screen negative UA : negative malaria test : neg salmonella test to r/o typhoid: pending RPR, Quantiferon,blood c/s, urine c/s, : negative ECHO showed no vegetations Isolated patient ID on consult , Dr Abreu Rickettsia: negative [place]- negative f/u Chikugunya, Dengue, Yellow Fever - pending Pt refused Spinal Tap also refused rpt CT scan of abd/chest with contrast Pt to ff up at the clinic for further work up and ff up pending results Return to ED if fever recurs. had long discussion with pt and his son - discussed test results. 2. HTN (hypertension) chronic cont Losartan, Norvasc , HCTZ ( home med ) 3.DVT prophylaxis Acute SCD Lovenox Discharge Exam - Head Exam Head Exam: ATRAUMATIC, NORMAL INSPECTION, NORMOCEPHALIC - Eye Exam Eye Exam: EOMI, Normal appearance, PERRL Pupil Exam: NORMAL ACCOMODATION - ENT Exam ENT Exam: Mucous Membranes Moist, Normal External Ear Exam - Neck Exam Neck exam: Full Rom Additional comments: no nuchal rigidity - Respiratory Exam Respiratory Exam: NORMAL BREATHING PATTERN. absent: Rales, Wheezes, Respiratory Distress - Cardiovascular Exam Cardiovascular Exam: REGULAR RHYTHM, +S1, +S2 - GI/Abdominal Exam GI & Abdominal Exam: Normal Bowel Sounds, Soft. absent: Tenderness - Extremities Exam Extremities exam: full ROM, normal capillary refill, pedal pulses present - Back Exam Back exam: FULL ROM. absent: CVA tenderness (L), CVA tenderness (R), paraspinal tenderness, vertebral tenderness - Neurological Exam Neurological exam: Alert, CN II-XII Intact, Oriented x3, Reflexes Normal - Psychiatric Exam Psychiatric exam: Normal Affect, Normal Mood - Skin Skin Exam: Dry, Intact, Normal Color, Warm Discharge Plan - Discharge Medications Prescriptions: amLODIPine [Norvasc] 5 mg PO DAILY #30 Atorvastatin [Lipitor] 10 mg PO HS #30 Hydrochlorothiazide [Microzide] 12.5 mg PO BID #60 cap Losartan [Cozaar] 50 mg PO DAILY #30 tab - Follow Up Plan Condition: GOOD Disposition: HOME/ ROUTINE Instructions: Weakness (ED) Additional Instructions: appt FP clinic in 1 wk ff up pending labs at the clinic on ff up Referrals: FAMILY PROVIDER,NO [Family Provider] - [facility] [Outside]
== END 2017-02-21 12:45 | disposition home or self-care (01) | DRG 420 ==
LOC: SUPCPDRO 10:46 → H.ER 10:46 → H.ERHOLD 14:23 → H.TEL 16:01 → OBSVTOIN 02-17 13:20 → H.TEL 02-17 15:39
PROVIDERS: ADMIT Internal Medicine; ATTEND Internal Medicine
DX: R50.9 Fever, unspecified (principal); I10 Essential (primary) hypertension; E78.5 Hyperlipidemia, unspecified; R74.0 Nonspecific elevation of levels of transaminase and lactic acid dehydrogenase [LDH]; R51 Headache; R53.1 Weakness; R63.0 Anorexia; R74.8 Abnormal levels of other serum enzymes; Z53.29 Procedure and treatment not carried out because of patient's decision for other reasons